=== PATIENT | male | born 1965 | race Two or more races ===

== ENCOUNTER → 2016-10-31 | Outpatient (CLI) | payer BC ==
[2016-10-31 09:42] LABS: Appearance,Urine Clear (Clear); Bilirubin,Urine Negative (Negative); Calcium Oxalate Crystals,Urine Rare /hpf; Glucose,Urine (UA) Negative (Negative); Ketones,Urine Negative (Negative); Leukocyte Esterase,Urine Negative (Negative); Mucus,Urine Rare /hpf; Nitrite,Urine Negative (Negative); Particle Count 1324; Protein,Urine Negative (Negative); RBC,Urine <1 /hpf (0-5); Squamous Epithelial Cell,Urine <1 /hpf (0-4); UA Billing (MACRO vs. MICRO) MICRO; Urobilinogen,Urine <2.0 mg/dL (<2.0); WBC,Urine <1 /hpf (0-5)
[2016-10-31 09:54] LABS: Basophils # (A) 0.1 k/uL (0-0.2); Basophils % (A) 1 %; CH 29.8; CHCM 33.1; Eosinophils # (A) 0.5 k/uL (0-0.7); Eosinophils % (A) 4 %; HCT 50.4 % (39.0-53.0); HDW 2.47; HGB 16.5 gm/dL (13.0-17.5); Luc # (Auto) 0.21; Luc % (Auto) 2; Lymphocytes # (A) 3.5 k/uL (1.0-4.8); Lymphocytes % (A) 31 %; MCH 29.7 pg (25.0-35.0); MCHC 32.8 g/dL (31.0-37.0); MCV 90.6 fL (80.0-100.0); Mean Platelet Volume 8.1; Monocytes # (A) 0.5 k/uL (0-1.0); Monocytes % (A) 5 %; Neutrophils # (A) 6.4 k/uL (1.3-7.7); Neutrophils % (A) 57 %; RBC 5.56 m/uL (4.30-5.90); RDW 13.5 % (11.5-15.5); WBC 11.2 k/uL (3.8-10.6); WBC (Perox) 11.26
[2016-10-31 12:03] LABS: Erythrocyte Sedimentation Rate 3 mm/hr (0-15)
[2016-10-31 12:43] LABS: Hemoglobin A1C 6.1 % (4.2-6.1)
[2016-10-31 13:38] LABS: ALT 32 U/L (21-72); AST 20 U/L (17-59); Alkaline Phosphatase 82 U/L (38-126); Anion Gap 10 mmol/L; Blood Urea Nitrogen 22 mg/dL (9-20); C Reactive Protein <5.0 mg/L (<10.0); Calcium 9.5 mg/dL (8.4-10.2); Carbon Dioxide 24 mmol/L (22-30); Chloride 106 mmol/L (98-107); Cholesterol 190 mg/dL (<200); Creatine Kinase 105 U/L (55-170); Glucose 124 mg/dL (74-99); HDL Cholesterol 31 mg/dL (40-60); Non-African American GFR(MDRD) >60 (>60 ml/min/1.73 sqM); Sodium 140 mmol/L (137-145); Total Bilirubin 0.5 mg/dL (0.2-1.3); Total Protein 6.7 g/dL (6.3-8.2); Triglycerides 230 mg/dL (<150)
[2016-10-31 13:58] LABS: Prostate Specific Antigen 0.43 ng/mL (0.00-4.00)
== END | disposition home or self-care (01) ==
LOC: LABWHC1 08:55
PROVIDERS: ATTEND Internal Medicine
DX: D64.9 Anemia, unspecified (principal); N40.0 Benign prostatic hyperplasia without lower urinary tract symptoms; E11.9 Type 2 diabetes mellitus without complications; E87.8 Other disorders of electrolyte and fluid balance, not elsewhere classified; E78.5 Hyperlipidemia, unspecified; I10 Essential (primary) hypertension; E55.9 Vitamin D deficiency, unspecified
CPT/HCPCS: 36415; 80053; 80061; 81001; 82306; 82550; 83036; 84153; 84439; 84443; 85025; 85652; 86140; 87086

== ENCOUNTER → 2017-02-24 | Outpatient (CLI) | payer BC ==
[2017-02-24 12:53] LABS: Basophils # (A) 0.1 k/uL (0-0.2); Basophils % (A) 1 %; CH 30.1; CHCM 34.2; Eosinophils # (A) 0.2 k/uL (0-0.7); Eosinophils % (A) 2 %; HCT 49.2 % (39.0-53.0); HDW 2.48; HGB 16.7 gm/dL (13.0-17.5); Luc # (Auto) 0.26; Luc % (Auto) 2; Lymphocytes # (A) 2.9 k/uL (1.0-4.8); Lymphocytes % (A) 19 %; MCV 88.3 fL (80.0-100.0); Mean Platelet Volume 7.5; Monocytes # (A) 0.9 k/uL (0-1.0); Monocytes % (A) 6 %; Neutrophils % (A) 71 %; RBC 5.57 m/uL (4.30-5.90); RDW 13.4 % (11.5-15.5); WBC 15.4 k/uL (3.8-10.6); WBC (Perox) 14.63
[2017-02-24 13:24] LABS: Anion Gap 9 mmol/L; Blood Urea Nitrogen 24 mg/dL (9-20); Calcium 9.3 mg/dL (8.4-10.2); Carbon Dioxide 25 mmol/L (22-30); Chloride 107 mmol/L (98-107); Glucose 113 mg/dL (74-99); Non-African American GFR(MDRD) >60 (>60 ml/min/1.73 sqM); Potassium 4.4 mmol/L (3.5-5.1); Sodium 141 mmol/L (137-145)
== END | disposition home or self-care (01) ==
LOC: LABWHC1 12:33
PROVIDERS: ATTEND Internal Medicine
DX: N20.0 Calculus of kidney (principal)
CPT/HCPCS: 36415; 80048; 85025

== ENCOUNTER → 2017-02-24 | Outpatient (CLI) | payer BC ==
--- NOTE | 2017-02-24 12:35 | US ---
EXAMINATION TYPE: US kidneys/renal and bladder DATE OF EXAM: 02/24/2017 12:21 PM COMPARISON: NONE CLINICAL HISTORY: N20.0 Nephrolithiasis. Pt states left flank pain, microscopic hematuria and history of renal stones EXAM MEASUREMENTS: Right Kidney: 12.0 x 5.1 x 5.8 cm Left Kidney: 14.1 x 7.1 x 6.3 cm Right Kidney: wnl Left Kidney: Moderate hydro, cyst lower pole= 2.7 x 2.3 x 2.4 cm Bladder: wnl, not fully distended Bilateral Jets seen: No Results called to Geena at 's office at time of exam IMPRESSION: 1. Left hydronephrosis. 2. Left renal cyst
== END ==
LOC: RADUSWWP 11:56
PROVIDERS: ATTEND Internal Medicine
DX: N28.1 Cyst of kidney, acquired (principal); N13.30 Unspecified hydronephrosis
CPT/HCPCS: 76770

== ENCOUNTER → 2017-02-28 | Outpatient (CLI) | payer BC ==
--- NOTE | 2017-02-28 08:34 | XR ---
EXAMINATION TYPE: XR abdomen 1V DATE OF EXAM: 02/28/2017 8:06 AM COMPARISON: NONE HISTORY: Pain TECHNIQUE: One view abdominal series FINDINGS: The osseous structures are intact. The bowel gas pattern is nonspecific. No definite suspicious calc ifications. Mild arthropathy of the hips. IMPRESSION: 1. Nonspecific abdomen.
== END ==
LOC: RADXRMAIN 07:41
PROVIDERS: ATTEND Urology
DX: N20.1 Calculus of ureter (principal)
CPT/HCPCS: 74000

== ENCOUNTER → 2017-03-20 | Outpatient (CLI) | payer BC ==
--- NOTE | 2017-03-20 08:14 | XR ---
Abdomen HISTORY: Ureteral calculus Frontal view of the abdomen submitted. Exam correlated to prior exam dated 02/28/2017 The lung bases are not included on the exam. There is no bowel obstruction or pneumoperitoneum eviden t. Bone mineralization is maintained. Ureteral calcification is not identified with certainty. IMPRESSION: Calculus is not identified with certainty.
== END | disposition home or self-care (01) ==
LOC: RADXRMAIN 07:02
PROVIDERS: ATTEND Urology
DX: N20.1 Calculus of ureter (principal)
CPT/HCPCS: 74000

== ENCOUNTER → 2017-10-04 | Outpatient (CLI) | payer BC ==
--- NOTE | 2017-10-04 13:05 | XR ---
EXAMINATION TYPE: XR chest 2V DATE OF EXAM: 10/04/2017 COMPARISON: NONE HISTORY: Cough TECHNIQUE: Frontal and lateral views of the chest are obtained. FINDINGS: Patient is rotated toward the right. There may be a spinal curvature. There is no focal ai r space opacity, pleural effusion, or pneumothorax seen. The cardiac silhouette size is within ayan l limits. Questionable scattered punctate densities are present primarily in the right lung. There a re prominent lung volumes. The osseous structures are intact. IMPRESSION: Correlate for possible COPD. Questionable granulomatous disease.
--- NOTE | 2017-10-04 14:05 | XR ---
Right knee HISTORY: Chronic right knee pain 4 views of the right knee, no comparisons Bone mineralization, joint spaces and alignment are maintained. There is no fracture or dislocation. Soft tissues are normal. No sizable joint effusion. There is overlying artifact. IMPRESSION: No abnormality evident to account for patient's.
== END | disposition home or self-care (01) ==
LOC: RADXRMAIN 12:00
PROVIDERS: ATTEND Internal Medicine
DX: M25.561 Pain in right knee (principal); R05 Cough
CPT/HCPCS: 71020

== ENCOUNTER → 2018-02-05 | Outpatient (CLI) | payer OTHER ==
--- NOTE | 2018-02-05 15:47 | US ---
EXAMINATION TYPE: US axilla RT DATE OF EXAM: 02/05/2018 COMPARISON: NONE CLINICAL HISTORY: ,D17.9 Benign lipomatous neoplasm. palpable in right axilla for a few years now, no t any bigger, no pain 2.6 x 2.4 x 1.1cm hyperechoic, well circumscribed, non vascular, probable lipoma seen. IMPRESSION: Circumscribed 2.6 cm hyperechoic oval lesion is most compatible with a lipoma. If increa sing in size over time reevaluation could be performed to exclude other lipomatous lesions.
== END | disposition home or self-care (01) ==
LOC: RADUSWWP 14:48
PROVIDERS: ATTEND Internal Medicine
DX: D17.9 Benign lipomatous neoplasm, unspecified (principal)

== ENCOUNTER → 2018-06-29 | Outpatient (CLI) | payer OTHER ==
--- NOTE | 2018-06-29 12:24 | CT ---
EXAMINATION TYPE: CT chest w con DATE OF EXAM: 06/29/2018 COMPARISON: Same day chest x-ray HISTORY: hemoptysis, abnormal CXR CT DLP: 595 mGycm. Automated Exposure Control for Dose Reduction was Utilized. TECHNIQUE: CT scan of the thorax is performed following with IV Contrast, patient injected with 100 mL of Isovue 300. FINDINGS: LUNGS: There is background mild to moderate underlying emphysematous change is prominent in the lung apices. Correlating with chest x-ray there is heterogeneous mass or masslike consolidation abutting t he posterior pleura measuring 4.0 cm AP diameter by 7.1 cm transversely axial image 44. Lesion measur es 5.8 cm craniocaudal dimension sagittal image 87. There are some foci of air along superior medial aspect. No thickened wall is clearly identified. No pleural effusion or pneumothorax is seen. Right l ara is clear. MEDIASTINUM: There are enlarged heterogeneous suspicious thoracic lymph nodes. There is enlarged ante rior superior mediastinal lymph node measuring 2.1 x 1.8 cm axial image 9 in between left common tim tid artery and subclavian artery. There are enlarged prevascular lymph nodes for reference 1.6 x 1.5 cm lymph node axial image 21. There are enlarged bilateral hilar lymph nodes and subcarinal lymph nod es as well as precarinal lymph nodes. For reference subcarinal lymph node measures 3.7 x 2.8 cm on ax ial image 32. There is enlarged paraesophageal lymph node measuring 2.2 x 1.8 cm axial image 49. No cardiomegaly is present. Main pulmonary artery measures 2.8 cm at bifurcation axial image 28. Noemí cent ascending aorta measures 3.1 cm in diameter. There is mild coronary artery calcification which i s noted marker for coronary artery disease. There is small pericardial effusion noted. OTHER: No adrenal masses are seen. Spine is straightened with mild multilevel anterior spurring. IMPRESSION: Favor primary lung carcinoma with thoracic metastatic disease as detailed above. CT-guide d biopsy or bronchoscopy can be performed for tissue analysis. Infection with reactive adenopathy can not be excluded but felt much less likely. I see no evidence of Mass or adenopathy on chest x-ray October 04, 2017 making aggressive or rapid growing process most l ikely.
== END | disposition home or self-care (01) ==
LOC: RADCTMAIN 11:24
PROVIDERS: ATTEND Internal Medicine
DX: C34.90 Malignant neoplasm of unspecified part of unspecified bronchus or lung (principal); C79.89 Secondary malignant neoplasm of other specified sites; R04.2 Hemoptysis
CPT/HCPCS: 71260; Q9967

== ENCOUNTER → 2018-06-29 | Outpatient (CLI) | payer OTHER ==
[2018-06-29 09:21] LABS: Basophils # (A) 0.1 k/uL (0-0.2); Basophils % (A) 1 %; Eosinophils # (A) 0.6 k/uL (0-0.7); Eosinophils % (A) 6 %; HCT 45.6 % (39.0-53.0); HGB 15.1 gm/dL (13.0-17.5); Lymphocytes # (A) 2.4 k/uL (1.0-4.8); Lymphocytes % (A) 21 %; MCH 27.8 pg (25.0-35.0); MCHC 33.1 g/dL (31.0-37.0); Mean Platelet Volume 7.2; Monocytes # (A) 0.6 k/uL (0-1.0); Monocytes % (A) 5 %; Neutrophils # (A) 7.6 k/uL (1.3-7.7); Neutrophils % (A) 66 %; Platelet Count 361 k/uL (150-450); RBC 5.43 m/uL (4.30-5.90); RDW 13.8 % (11.5-15.5); WBC 11.4 k/uL (3.8-10.6)
--- NOTE | 2018-06-29 09:42 | XR ---
EXAMINATION TYPE: XR chest 2V DATE OF EXAM: 06/29/2018 COMPARISON: Chest x-ray October 04, 2017 HISTORY: Chronic cough with hemoptysis. TECHNIQUE: Frontal and lateral views of the chest are obtained. FINDINGS: There are scattered calcified nodules are granulomas throughout the right lung. There is ch ronic parenchymal change with new 7 to 8 cm posterior masslike opacity in the left lower lobe. Right lung is clear. No pleural effusion or pneumothorax is seen bilaterally. The cardiac silhouette size is within normal limits. The osseous structures are intact. IMPRESSION: New 7 to 8 cm round well-circumscribed mass or masslike consolidation posterior aspect l eft lower lobe. Differential includes round pneumonia and neoplasm, other etiologies are not excluded . Further investigation with contrast-enhanced chest CT should be considered.
== END | disposition home or self-care (01) ==
LOC: LABWHC1 08:51
PROVIDERS: ATTEND Internal Medicine
DX: R04.2 Hemoptysis (principal); J12.9 Viral pneumonia, unspecified; J06.9 Acute upper respiratory infection, unspecified
CPT/HCPCS: 36415; 71046; 85025

== ENCOUNTER → 2018-07-07 | Outpatient (CLI) | payer OTHER ==
--- NOTE | 2018-07-08 16:18 | PE ---
EXAMINATION TYPE: PET CT fusion skull to thigh DATE OF EXAM: 07/07/2018 COMPARISON: CT chest 06/29/2018 Prior PET/CT: None HISTORY: Solitary pulmonary nodule TECHNIQUE: Following the intravenous administration of 14.5 mCi of F-18 FDG, whole body images are p erformed from the skull base to the midthigh. Images are reviewed on the computer in the coronal, ax ial, and sagittal planes. Reconstructed rotating images are created on independent workstation and r eviewed on the computer. A localization and attenuation correction CT is performed in conjunction w ith the PET scan. DLP: 499.70 mGycm SCAN: Initial Blood glucose: 128 mg/dL Average Mediastinum SUV: 0.83 Average Liver SUV: 1.28 FINDINGS: NECK: There is a small amount of increased radiotracer accumulation along the anterior right hyoid w ith an SUV value of 4.19. Metastatic lesion is not excluded. If there is misregistration, potentially this could be related to phonation. However, the contralateral side is normal. This area should be v iewed with suspicion. There is a small focus of radiotracer accumulation lateral to the thyroid in th e left supraclavicular region with an SUV value of 3.0. A small metastatic lesion should be considere d. PET image 63 THORAX: There is increased uptake within the mediastinum through multiple enlarged lymph nodes. This includes the superior mediastinum. PET image 73, SUV 5.23. Superior mediastinum PET image 80, SUV 7.1 5. Paratracheal lymph node not enlarged by CT criteria is an SUV value of 2.86 suspicious for metasta tic lesion. PET image 81. There is marked increased uptake within aortopulmonic window lymph nodes anita th medially and laterally. This has an SUV value of 9.11 laterally and 7.84 medially. Small lymph nod e in the pretracheal space same level has elevated SUV value of 2.8 which is suspicious for metastati c disease. PET image 89. Additional more inferior aortopulmonic window lymph nodes are present with u ptake measuring 6.67, 7.39 and a pretracheal lymph node measuring 8.51. PET image 92. The subcarinal lymph node has uptake measuring 7.27. PET image 103. The right infrahilar lymph node at this level al so has elevated uptake measuring 4.5. There is peripheral marked uptake within the posterior left lung mass with an SUV value of 10.57. PET image 116. There is a subcutaneous area of increased uptake with an SUV value of 2.66. Subcutaneous metastatic l esion should be considered. PET image 79. ABDOMEN: No abnormal uptake. The adrenal glands and the liver appear normal radiotracer distribution. PELVIS: No abnormal uptake. OSSEOUS STRUCTURES: No abnormal uptake. LOCALIZATION CT: No discrete abnormality at the anterior right hyoid is evident. There may be slight increased sclerosis of uncertain significance on the localization CT. Suspicious uptake within the le ft axillary lymph nodes are not evident. The ascending thoracic aorta at the main pulmonary artery is 4.1 cm. The main pulmonary artery at the bifurcation is 3.2 cm. There is a small pericardial effusio n. Lung mass the localization CT measures 7.4 x 5.0 cm. Small hiatal hernia is noted. COMPARISON: No significant change from the chest CT is evident. IMPRESSION: 1. Elevated uptake of radiotracer within the posterior left lung mass suspicious for primary neoplasm . 2. There are are extensive lymph nodes throughout the mediastinum including right infrahilar, pretrac heal, subcarinal, superior mediastinal lymph nodes with uptake suspicious for metastatic disease. 3. Additional radiotracer uptake may be within a right supraclavicular lymph node. 4. Subcutaneous metastatic lesion within the left chest wall may be present. 5. Small focus of radiotracer may be in the region of the right anterior hyoid bone. Sclerotic metast asis is not entirely excluded at this level. Consider this area with some suspicion.
== END | disposition home or self-care (01) ==
LOC: RADPETMAIN 13:24
PROVIDERS: ATTEND Internal Medicine
DX: R91.8 Other nonspecific abnormal finding of lung field (principal)
CPT/HCPCS: 78815; A9552

== ENCOUNTER 2018-07-09 08:06 | Day surgery (SDC) | payer OTHER ==
[2018-07-09 09:09] LABS: Mean Platelet Volume 6.7; Platelet Count 389 k/uL (150-450)
[2018-07-09 09:25] LABS: INR 1.1 (<1.2); Prothrombin Time 10.5 sec (9.0-12.0)
[2018-07-09] MEDS ORDERED: HYDROmorphone 1 MG/ML 1 ML SYRINGE IVP PRN (11:05)
--- NOTE | 2018-07-09 11:40 | US ---
ULTRASOUND GUIDED FNA LEFT SUBCUTANEOUS NODULE BIOPSY: CLINICAL HISTORY: Abnormal PET scan with uptake within the left subcutaneous tissues near the axilla FINDINGS: The procedure was explained to the patient. The risks, complications, benefits and alternatives were discussed and any questions were answered. Informed consent was obtained. Patient was placed supin e on the ultrasound table and prepped and draped in the usual sterile fashion. Utilizing a 25 gauge needle, five passes were made into the suspected nodule. Patient was stable throughout the procedure. Pathology is pending. All elements of maximal barrier technique were utilized. IMPRESSION: 1. Successful ultrasound guided FNA soft tissue nodule biopsy.
--- NOTE | 2018-07-09 11:41 | CT ---
EXAMINATION TYPE: CT guided FNA DATE OF EXAM: 07/09/2018 COMPARISON: PET/CT dated 07/07/2018 HISTORY: Left lung mass The procedure is discussed with the patient, the risks, complications, benefits and alternatives, wer e discussed and any questions were answered. Informed consent was obtained. The patient is placed p alissa on the CT table, prepped and draped in the usual sterile fashion. Utilizing a 22-gauge Chiba needle access into the left lower lobe mass was achieved with passes perfo rmed. Pathology confirmed adequate sample. All elements of maximal barrier technique were utilized. The patient remained stable throughout the procedure with no immediate postprocedural complication. IMPRESSION: 1. Successful CT guided fine needle aspiration of a left lower lobe lung mass
[2018-07-09 11:43] VITALS: RESP 16; TEMP 98.2
--- NOTE | 2018-07-09 12:31 | XR ---
EXAMINATION TYPE: XR chest 1V portable DATE OF EXAM: 07/09/2018 COMPARISON: 07/09/2018 HISTORY: Post lung biopsy TECHNIQUE: Single frontal view of the chest is obtained. FINDINGS: There is no focal air space opacity, pleural effusion, or pneumothorax seen. The cardiac silhouette size is within normal limits. The osseous structures are intact. Large left lung mass no paulette. IMPRESSION: Large left lung mass with no evidence of pneumothorax post biopsy.
[2018-07-09 14:19] VITALS: BP 138/70; PULSE 58
--- NOTE | 2018-07-09 14:19 | XR ---
EXAMINATION TYPE: XR chest 1V portable DATE OF EXAM: 07/09/2018 COMPARISON: 07/09/2018 HISTORY: post left lung bx TECHNIQUE: Single frontal view of the chest is obtained. FINDINGS: There is no focal air space opacity, pleural effusion, or pneumothorax seen. The cardiac silhouette size is within normal limits. The osseous structures are intact. Large left lung mass n oted. IMPRESSION: Large left lung mass with no evidence of pneumothorax post biopsy.
== END 2018-07-09 14:15 | disposition home or self-care (01) ==
LOC: RADPROMAIN 08:06
PROVIDERS: ATTEND Internal Medicine
DX: C34.92 Malignant neoplasm of unspecified part of left bronchus or lung (principal); F17.200 Nicotine dependence, unspecified, uncomplicated; R59.0 Localized enlarged lymph nodes; J44.9 Chronic obstructive pulmonary disease, unspecified; I25.10 Atherosclerotic heart disease of native coronary artery without angina pectoris; E78.5 Hyperlipidemia, unspecified; N40.0 Benign prostatic hyperplasia without lower urinary tract symptoms; E03.9 Hypothyroidism, unspecified; Z80.1 Family history of malignant neoplasm of trachea, bronchus and lung
CPT/HCPCS: 88305; 88173; 85049; 85610; 88342; 88341; 71045; 76942; 10022 ×2; 77012; J1170

== ENCOUNTER → 2018-07-11 | Outpatient (CLI) | payer OTHER ==
--- NOTE | 2018-07-11 13:52 | MR ---
EXAMINATION TYPE: MR brain wo/w con DATE OF EXAM: 07/11/2018 COMPARISON: None HISTORY: Headache / Lung ca CONTRAST: Performed utilizing 9.5 mL intravenous Gadavist gadolinium contrast. TECHNIQUE: Multiplanar, multiecho imaging on a 3.0 Elaine magnet is performed through the brain. Stud y is performed within 24 hours of arrival to the hospital. Motion artifact is present causing some li mitation. The craniovertebral junction is normal. The pituitary is normal. Diffusion-weighted imaging is performed. No abnormal hyperintensity is present to suggest an acute i ntracranial infarct or acute ischemic change. There are scattered punctate areas of hyperintensity on T2 and Inversion Recovery weighted sequences which are non-specific but can be related to microvascular ischemic changes. With the patient's histo ry of cancer, metastatic disease, wall considered less likely, is not excluded. A larger lesion for r eference purposes measures 0.6 cm in the right subcortical white matter at the level of the nicole ra diata. Series 501 image 19. Similar finding is within the inferior left centrum semiovale, series 501 image 20. There is a area of vasogenic edema within the subcortical white matter of the right frontal lobe radha uring 2.0 x 0.8 cm. Findings are suggestive for underlying neoplasm. Series 501 image 24. Postcontras t images demonstrate a ring-enhancing lesion compatible with a metastatic lesion measuring 0.7 cm x 0 .8 x 0.8 cm. No additional abnormal enhancement is evident. Ventricles and sulci are appropriate for the patient age. Patent cavum septum lucidum and cavum verga e are present, normal variants. IMPRESSIONS: 1. Ring-enhancing lesion measuring 0.7 x 0.8 x 0.8 cm right centrum semiovale subcortical white matte r of the right frontal lobe with surrounding vasogenic edema. 2. Several nonspecific subcortical and deep white matter changes, more likely on the basis of microva scular ischemic change. These are nonenhancing and less likely neoplasm which is not entirely exclude d on the basis of this exam.
== END | disposition home or self-care (01) ==
LOC: RADMRIMAIN 12:44
PROVIDERS: ATTEND Internal Medicine Hematology & Oncology
DX: G93.89 Other specified disorders of brain (principal); R60.0 Localized edema; R90.89 Other abnormal findings on diagnostic imaging of central nervous system; C34.90 Malignant neoplasm of unspecified part of unspecified bronchus or lung
CPT/HCPCS: 70553; A9581

== ENCOUNTER → 2018-07-16 | Outpatient (CLI) | payer OTHER ==
--- NOTE | 2018-07-17 06:39 | US ---
EXAMINATION TYPE: US thyroid st tissue head/neck DATE OF EXAM: 07/16/2018 COMPARISON: CT chest June 29, 2018. CLINICAL HISTORY: E04.0 Diffuse goiter. GLAND SIZE: Right Lobe: 4.4 x 1.7 x 1.4 cm Overall Parenchyma: homogenous Left Lobe: 2.5 x 1.0 x 1.3 cm Overall Parenchyma: homogeneous Isthmus Thickness: 0.5 cm NODULES RIGHT: # of nodules measured on right: 0 LEFT: # of nodules measured on left: 0 ISTHMUS: # of nodules measured in the isthmus: 1 1. 1.6 X 1.0 x 1.5 cm hypoechoic solid nodule at the mid pole with irregular margins. This nodule is wider than tall and shows intranodular vascularity. No prior Bilateral neck scanned, no evidence of lymphadenopathy. Lymph nodes noted largest measuring 1.0cm There is asymmetrically smaller left side thyroid lobe. Thyroid gland is overall homogeneous. In left aspect of the isthmus there is heterogeneous slightly hypoechoic somewhat irregular marginated 1.6 c m solid nodule IMPRESSION: TR 4-- moderately suspicious left thyroid isthmus solid lesion. Advise ultrasound-guided fine-needle aspiration since greater than 1.5 cm.
== END ==
LOC: RADUSMAIN 07-13 17:50
PROVIDERS: ATTEND Internal Medicine
DX: E04.0 Nontoxic diffuse goiter (principal)
CPT/HCPCS: 76536

== ENCOUNTER → 2018-08-23 | Outpatient (CLI) | payer OTHER ==
--- NOTE | 2018-08-23 12:49 | CT ---
EXAMINATION TYPE: CT chest w con DATE OF EXAM: 08/23/2018 COMPARISON: 06/29/2018 and PET/CT dated 07/07/2018 HISTORY: Lung cancer. Left lower extremity swelling. CT DLP: 568.9 mGycm. Automated Exposure Control for Dose Reduction was Utilized. TECHNIQUE: CT scan of the thorax is performed following with IV Contrast, patient injected with 100 mL of Isovue 300. FINDINGS: LUNGS: There is decrease in size of the left lower lobe cavitary centrally to chronic mass with air-f luid level. This currently measures 6.4 x 4.0 cm and previously measured 7.1 x 4.0 cm. No new pulmona ry nodules or masses are seen. Mild centrilobular background emphysematous change is present. There is no pleural effusion or pneumothorax seen. The tracheobronchial tree is patent. MEDIASTINUM: Degree of adenopathy has also decreased in the interim with the largest necrotic and het erogenous subcarinal lymph node measuring 3.4 x 2.8 cm on the current exam and previously measuring 3 .9 x 3.1 cm on the prior of 06/29/2018. Other enlarged right hilar, left hilar, pretracheal, left para tracheal, and prevascular lymph nodes are seen of the second largest in the prevascular space measuri ng 1.5 cm in short axis as well as within the superior mediastinum on image 11 measuring 2.0 cm in sh ort axis. Supraclavicular lymph node is prominent measuring 8 mm in short axis on image 4 on the left . Small nonenlarged right supraclavicular lymph nodes are also seen. Few morphologically rounded righ t axillary lymph nodes are noted as seen on the prior. Conglomeration of lymph nodes are seen of th e mary kay. Mild coronary artery calcifications are seen. Small pericardial effusion is present. No cardiomegaly. OTHER: Low-attenuation of the hepatic parenchyma relates to hepatic steatosis. IMPRESSION: 1. Decreasing size of the known left lower lobe pulmonary neoplasm, mediastinal adenopathy and suprac lavicular adenopathy. 2. No new pulmonary nodule or mass. 3. Hepatic steatosis.
--- NOTE | 2018-08-23 13:16 | US ---
EXAMINATION TYPE: US venous doppler duplex LE DATE OF EXAM: 08/23/2018 12:59 PM COMPARISON: NONE CLINICAL HISTORY: M79.662 lower leg pain. Redness to left thigh and calf at course of Greater Sapheno us Vein and left calf pain x 1 week; CA lung; last chemotherapy treatment 2 weeks ago SIDE PERFORMED: Bilateral TECHNIQUE: The lower extremity deep venous system is examined utilizing real time linear array sonog oneal with graded compression, doppler sonography and color-flow sonography. Grayscale, color doppler , spectral doppler imaging performed of the deep veins of the lower extremities. VESSELS IMAGED: Common Femoral Vein Deep Femoral Vein Greater Saphenous Vein * Femoral Vein Popliteal Vein Small Saphenous Vein * Proximal Calf Veins (* superficial vessels) Right Leg: Negative for DVT Left Leg: Is positive for non occluding DVT in left CFV along parnell at Greater Saphenous Vein conflu ence, and positive for DVT in left lower Popliteal Vein and upper calf veins. Left Greater Saphenous Vein is positive for SVT at Groin to mid thigh level. IMPRESSION: Positive completely occluding deep venous thrombosis within the left common femoral vein and within the popliteal vein and upper calf veins. Superior venous thrombosis is also seen within th e left greater saphenous vein at the groin to mid thigh. Tech findings called to Uche at Dr Abisai nick's Office at exam's end. Patient transported by wheelchair back to his Office for followup care at [facility]. GALINA
== END | disposition home or self-care (01) ==
LOC: RADUSWWP 12:07
PROVIDERS: ATTEND Internal Medicine Hematology & Oncology
DX: C34.32 Malignant neoplasm of lower lobe, left bronchus or lung (principal); R59.0 Localized enlarged lymph nodes; I82.412 Acute embolism and thrombosis of left femoral vein; I82.432 Acute embolism and thrombosis of left popliteal vein; I82.4Z2 Acute embolism and thrombosis of unspecified deep veins of left distal lower extremity; I82.812 Embolism and thrombosis of superficial veins of left lower extremity
CPT/HCPCS: 93970; 71260; Q9967

== ENCOUNTER → 2018-11-12 | Outpatient (CLI) | payer OTHER ==
[2018-11-12 06:58] LABS: Blood Urea Nitrogen 27 mg/dL (9-20)
--- NOTE | 2018-11-12 08:13 | CT ---
EXAMINATION TYPE: CT chest w con DATE OF EXAM: 11/12/2018 COMPARISON: 08/23/2018 HISTORY: Follow up of lung cancer CT DLP: 671 mGycm. Automated Exposure Control for Dose Reduction was Utilized. TECHNIQUE: CT scan of the thorax is performed following with IV Contrast, patient injected with 100 mL of Isovue 300. FINDINGS: LUNGS: There is continued decrease in size of left lower lobe cavitary mass previously measuring 4.0 x 6.0 c m on the exam of 08/23/2018 and currently measuring 3.1 x 3.6 cm. There is minimal surrounding atelec tasis seen medially. No adjacent fibrotic change. Underlying moderate centrilobular emphysema is pres ent. No new pulmonary nodules or masses are identified. MEDIASTINUM: The previously seen mediastinal adenopathy continues to decrease. The prevascular previo usly seen 1.5 cm short axis lymph node now measures 8 mm on series 3 image 14. The subcarinal lymph n ode that measured 3.4 x 2.8 cm on the prior exam now measures 1.1 cm in short axis. Right hilar adeno elizabeth also improved with the largest lymph node measuring 1.1 cm in short axis. No sizable pericardia l effusion is seen. Few coronary artery calcifications are seen. The previously seen prominent supra clavicular lymph nodes are not included in the [id number] on this examination. OTHER: Hepatic parenchyma is diffusely hypoattenuated in comparison to that of the spleen, most commonly see n in hepatic steatosis. This finding limits evaluation for hepatic masses. No gross evidence of hepat ic mass is seen. No intrahepatic biliary ductal dilatation. IMPRESSION: 1. Continued response to treatment with decreased size of the solitary left lower lobe cavitary mass and decrease in mediastinal adenopathy, only a few slightly enlarged lymph nodes remaining. No new ev idence of metastasis within the chest. 2. Hepatic steatosis.
== END | disposition home or self-care (01) ==
LOC: RADCTMAIN 06:26
PROVIDERS: ATTEND Internal Medicine Hematology & Oncology
DX: C34.32 Malignant neoplasm of lower lobe, left bronchus or lung (principal); R59.0 Localized enlarged lymph nodes
CPT/HCPCS: 82565; 84520; 71260; 36415; Q9967

== ENCOUNTER → 2018-12-06 | Outpatient (CLI) | payer OTHER ==
--- NOTE | 2018-12-06 21:46 | MR ---
EXAMINATION TYPE: MR brain wo/w con DATE OF EXAM: 12/06/2018 COMPARISON: MRI brain September 06, 2018. HISTORY: Secondary malignant neoplasm of brain, F/u TECHNIQUE: Multiplanar, multisequence images of the brain and brainstem is performed without and with IV contras t, utilizing 10 mL intravenous Gadavist . FINDINGS: Diffusion weighted images demonstrate no evidence of a recent infarct or other diffusion ab normality. There is no worrisome extra-axial fluid collection. Ventricular and sulcal prominence con sistent with mild diffuse age related cerebral atrophy is redemonstrated. Septum pellucidum vergae is redemonstrated. Scattered foci of T2 hyperintensity are redemonstrated throughout the white matter b ilaterally. Approximately 20-30 small scattered redemonstrated. Midline structures demonstrate normal morphology. The craniocervical junction appears within normal limits. Post contrast images demonstrate no recurrent enhancing lesions. Previously visualized from enhancing 8 mm focus high right frontal lobe is not clearly evident on current study near axial image 69. No new enhancing lesions are seen. The dural venous sinuses appear patent. The visualized sinuse s are clear and the globes are intact. IMPRESSION: No new or recurrent enhancing foci to suggest active metastatic malignant recurrence. Sta ble mild diffuse cerebral atrophy and mild to moderate chronic small vessel ischemic change.
== END | disposition home or self-care (01) ==
LOC: RADMRIMAIN 19:38
PROVIDERS: ATTEND Radiology Radiation Oncology
DX: G31.1 Senile degeneration of brain, not elsewhere classified (principal); I67.82 Cerebral ischemia; C79.31 Secondary malignant neoplasm of brain; C77.3 Secondary and unspecified malignant neoplasm of axilla and upper limb lymph nodes; C34.32 Malignant neoplasm of lower lobe, left bronchus or lung; Z92.21 Personal history of antineoplastic chemotherapy
CPT/HCPCS: 70553; A9585

== ENCOUNTER → 2019-02-12 | Outpatient (CLI) | payer OTHER ==
--- NOTE | 2019-02-13 09:14 | XR ---
EXAMINATION TYPE: XR knee complete RT DATE OF EXAM: 02/12/2019 CLINICAL HISTORY: pain TECHNIQUE: Three views of the right knee are obtained. COMPARISON: None. FINDINGS: There is no acute fracture/dislocation. The tri-compartment joint spaces appear within no rmal limits. The overlying soft tissue appears unremarkable. IMPRESSION: There is no acute fracture or dislocation.ICD 10 NO FRACTURE, INITIAL EVALUATION
== END | disposition home or self-care (01) ==
LOC: RADXRMAIN 17:21
PROVIDERS: ATTEND Internal Medicine
DX: M17.11 Unilateral primary osteoarthritis, right knee (principal); M25.461 Effusion, right knee

== ENCOUNTER → 2019-02-21 | Outpatient (CLI) | payer OTHER ==
[2019-02-21 17:12] LABS: Blood Urea Nitrogen 16 mg/dL (9-20)
--- NOTE | 2019-02-21 18:13 | CT ---
EXAMINATION TYPE: CT angio chest DATE OF EXAM: 02/21/2019 5:49 PM COMPARISON: None HISTORY: Dyspnea and left side chest pain. CT DLP: 384.3 mGycm Automated exposure control for dose reduction was used. CONTRAST: CTA scan of the thorax is performed with IV Contrast, patient injected with 69ml mL of Isovue 370, pu lmonary embolism protocol. . There are 3-D post processed images. FINDINGS: There is mild pulmonary emphysema. There is a 3 cm noncalcified masslike density in the posterior lef t lower lobe. The other lung cervantes are clear. There is no pleural effusion. Heart size is normal. There is a 1 cm subcarinal lymph node. There is a 17 x 10 mm right bronchial lymph node. Heart size i s normal. There is no pericardial effusion. Upper abdominal soft tissues are unremarkable. I see no filling defect in the pulmonary arteries. Bony thorax is intact. IMPRESSION: NO EVIDENCE OF PULMONARY EMBOLISM. LEFT LOWER LOBE MASS IS SLIGHTLY SMALLER THAN THE LAST CT SCAN OF 11/12/2018. THERE APPEARS TO BE SLIGHT IMPROVEMENT IN THE SUBCARINAL AND RIGHT BRONCHIAL ADENOPATHY COM PARED TO LAST EXAM.
== END | disposition home or self-care (01) ==
LOC: RADCTMAIN 16:30
PROVIDERS: ATTEND Internal Medicine Hematology & Oncology
DX: Z03.89 Encounter for observation for other suspected diseases and conditions ruled out (principal); R91.8 Other nonspecific abnormal finding of lung field; R59.0 Localized enlarged lymph nodes; C34.32 Malignant neoplasm of lower lobe, left bronchus or lung
CPT/HCPCS: 82565; 84520; 71275; 36415; Q9967

== ENCOUNTER → 2019-03-05 | Outpatient (CLI) | payer OTHER ==
--- NOTE | 2019-03-05 15:14 | MR ---
EXAMINATION TYPE: MR brain wo/w con DATE OF EXAM: 03/05/2019 COMPARISON: MRI brain December 06, 2018 and older studies. HISTORY: secondary neoplasm brain, metastatic lung cancer progress study. TECHNIQUE: Multiplanar, multisequence images of the brain and brainstem is performed without and with IV contras t, utilizing 11 mL intravenous Gadavist . FINDINGS: Diffusion weighted images demonstrate no evidence of a recent infarct or other diffusion ab normality. There is no worrisome extra-axial fluid collection. Ventricular and sulcal prominence is redemonstrated. Scattered foci T2 hyperintensity throughout the white matter bilaterally are again se en. Septum pellucidum vergae is redemonstrated. The brain volume is age appropriate. Midline structures demonstrate normal morphology. The craniocervical junction appears within normal limits. Post contrast images demonstrate no new enhancing lesions. Prior visualized rim-enhancing me tastatic focus high right frontal lobe shows no recurrence on current study. The dural venous sinuses appear patent. Mild to moderate mucosal thickening involving right maxillary sinus is now present, i mproving but persistent tiny air-fluid level noted. Resolution of air-fluid level left maxillary sinu s noted. Persistent mild to moderate mucosal thickening involving ethmoid sinuses bilaterally, left g reater than right. IMPRESSION: Overall stable findings from most recent CT, no new or recurrent enhancing foci to sugg est active metastatic malignant recurrence. Stable mild diffuse cerebral atrophy and mild to borderli ne moderate chronic small vessel ischemic change.
== END | disposition home or self-care (01) ==
LOC: RADMRIMAIN 13:59
PROVIDERS: ATTEND Radiology Radiation Oncology
DX: C79.31 Secondary malignant neoplasm of brain (principal); C77.3 Secondary and unspecified malignant neoplasm of axilla and upper limb lymph nodes; C34.32 Malignant neoplasm of lower lobe, left bronchus or lung; G31.9 Degenerative disease of nervous system, unspecified; I67.82 Cerebral ischemia; Z92.21 Personal history of antineoplastic chemotherapy
CPT/HCPCS: 70553; A9585

== ENCOUNTER → 2019-06-05 | Outpatient (CLI) | payer OTHER ==
--- NOTE | 2019-06-05 21:54 | MR ---
EXAMINATION TYPE: MR brain wo/w con DATE OF EXAM: 06/05/2019 COMPARISON: 03/05/2019, 09/06/2018 HISTORY: Secondary neoplasm brain CONTRAST: Performed utilizing 11 mL intravenous Gadavist gadolinium contrast. TECHNIQUE: Multiplanar, multiecho imaging on a 3.0 Elaine magnet is performed through the brain. Stud y is performed within 24 hours of arrival to the hospital. The craniovertebral junction is normal. The pituitary is normal. Diffusion-weighted imaging is performed. No abnormal hyperintensity is present to suggest an acute i ntracranial infarct or acute ischemic change. There are scattered punctate subcortical white matter changes which are nonspecific. This could be re lated to microvascular ischemic change. Differential diagnosis could include multiple sclerosis or Ly me disease, vasculitis. These are nonenhancing suggesting neoplasm to be less likely. Optic chiasm is normal. Normal vascular flow voids are present. Ventricles and sulci are appropriate for the patient age. There is a patent cavum septum lucid and ca vum vergae, normal variants. COMPARISON: No significant interval change from the recent comparison is evident. Comparison is also made of 09/06/2018. The extremely subtle area of enhancement is not evident currently Mucosal thickening is present through the maxillary sinuses and ethmoid air cells. Frontal sinuses ar e clear. Small amount mucosal thickening is within sphenoid sinuses. IMPRESSIONS: 1. No suspicious enhancement to suggest recurrent or new metastatic lesions. 2. Multiple bilateral scattered deep white matter changes which are nonspecific and present previousl y likely reflect microvascular ischemic change.
== END | disposition home or self-care (01) ==
LOC: RADMRIMAIN 10:53
PROVIDERS: ATTEND Radiology Radiation Oncology
DX: C79.31 Secondary malignant neoplasm of brain (principal); C77.3 Secondary and unspecified malignant neoplasm of axilla and upper limb lymph nodes; C34.32 Malignant neoplasm of lower lobe, left bronchus or lung; Z92.21 Personal history of antineoplastic chemotherapy
CPT/HCPCS: 70553; A9585

== ENCOUNTER → 2019-07-03 | Outpatient (CLI) | payer OTHER ==
[2019-07-03 07:42] LABS: African American GFR (CKD) >90 (>60 ml/min/1.73 sqM); Blood Urea Nitrogen 21 mg/dL (9-20)
--- NOTE | 2019-07-03 10:24 | CT ---
EXAMINATION TYPE: CT ChestAbdPelvis w con DATE OF EXAM: 07/03/2019 COMPARISON: Prior chest CT dated February 21, 2019 and older CTs. Prior PET/CT July 07, 2018. HISTORY: Lung CA follow up CT DLP: 2052.1 mGycm. Automated Exposure Control for Dose Reduction was Utilized. CONTRAST: CT scan of the thorax, abdomen and pelvis is performed with IV Contrast, patient injected with 100 mL of Isovue 300. FINDINGS: LUNGS: Persistent posterior left lower lobe mass measuring 3.0 x 2.7 cm axial image 43 of diminish in size from PET/CT on February 21 and November 22, 2018 study. Fairly stable from most recent February 21, 2019 study. Background mild to moderate underlying emphysematous change most prominent in the upper lobes. No new nodules or masses. No pleural effusion or pneumothorax. MEDIASTINUM: There are no new or persistent greater than 1 cm mediastinal lymph nodes. Largest lymph node identified subcentimeter-sized prevascular space anteriorly on image 15 is unchanged from most r ecent study February 21, 2019. Stable prominent but subcentimeter lymph nodes in the AP window and pericar inal region axial image 24. Stable prominent just over 1 cm right hilar lymph node image [address] No cardiomegaly or pericardial effusion is seen. OTHER: Redemonstration of prominent but subcentimeter bilateral axillary lymph nodes presumed benign. LIVER/GB: Liver is diffusely low-density consistent with fatty infiltration. PANCREAS: No significant abnormality is seen. SPLEEN: No significant abnormality is seen. ADRENALS: No significant abnormality is seen. KIDNEYS: A few simple-appearing thin-walled cysts in the left kidney are present, larger measures 2.9 cm long axis axial image 41 series 5. Symmetrical intramedullary uptake and excretion without hydron ephrosis. Mild bladder wall thickening up to 5 mm. Correlate clinically to exclude acute cystitis. Fi nding could be products of active treatment change or chemotherapy. BOWEL: Oral contrast reaches level of the cecum. No suspicious small or large bowel dilatation. GENITAL ORGANS: No gross abnormality seen. LYMPH NODES: No greater than 1cm abdominal or pelvic lymph nodes are appreciated. OSSEOUS STRUCTURES: Vacuum disc with moderate disc space narrowing L5-S1 level. OTHER: Moderate mixed plaque in the aorta extending into branch vessels. IMPRESSION: Compared to most recent CTA chest February 21, 2019. No significant interval change. Stable le ft lower lobe 3.0 cm mass. No new nodules or adenopathy. No new metastatic disease.
== END ==
LOC: RADCTMAIN 07:03
PROVIDERS: ATTEND Internal Medicine Hematology & Oncology
DX: C34.32 Malignant neoplasm of lower lobe, left bronchus or lung (principal)
CPT/HCPCS: 82565; 84520; 71260; 74177; 36415; Q9967 ×2

== ENCOUNTER → 2019-08-06 | Outpatient (CLI) | payer OTHER ==
[2019-08-06 08:27] LABS: Basophils # (A) 0.1 k/uL (0-0.2); Basophils % (A) 1 %; Eosinophils # (A) 0.4 k/uL (0-0.7); Eosinophils % (A) 4 %; HCT 46.4 % (39.0-53.0); HGB 15.9 gm/dL (13.0-17.5); Lymphocytes # (A) 2.9 k/uL (1.0-4.8); Lymphocytes % (A) 35 %; MCH 29.9 pg (25.0-35.0); MCHC 34.2 g/dL (31.0-37.0); MCV 87.5 fL (80.0-100.0); Mean Platelet Volume 6.8; Monocytes # (A) 0.4 k/uL (0-1.0); Monocytes % (A) 5 %; Neutrophils # (A) 4.3 k/uL (1.3-7.7); Neutrophils % (A) 52 %; Platelet Count 259 k/uL (150-450); RBC 5.31 m/uL (4.30-5.90); RDW 13.1 % (11.5-15.5); WBC 8.3 k/uL (3.8-10.6)
[2019-08-06 14:24] LABS: Erythrocyte Sedimentation Rate 2 mm/hr (0-15)
[2019-08-06 17:03] LABS: African American GFR (CKD) 88.4 (60.0-200.0); Albumin 4.3 g/dL (3.80-4.90); Albumin/Globulin Ratio 2.53 (1.60-3.17); Anion Gap 8.7 mmol/L (4.00-12.00); BUN/Creat Ratio 22.73 Ratio (12.00-20.00); C Reactive Protein 0.5 mg/dL (0.0-0.8); Calcium 9.4 mg/dL (8.7-10.3); Carbon Dioxide 21.3 mmol/L (21.6-31.8); Chol/HDL Ratio 6.57; Globulin 1.7 g/dL (1.6-3.3); LDL Cholesterol,Calculated 79.8 mg/dL (0.0-131.0); Potassium 4.4 mmol/L (3.5-5.5); Total Bilirubin 0.5 mg/dL (0.3-1.2); VLDL Calculation 87.2 mg/dL (5.00-40.00)
[2019-08-06 17:40] LABS: Hemoglobin A1C 9.1 % (4.0-6.0)
== END | disposition home or self-care (01) ==
LOC: LABWHC1 07:46
PROVIDERS: ATTEND Internal Medicine
DX: D64.9 Anemia, unspecified (principal); C34.90 Malignant neoplasm of unspecified part of unspecified bronchus or lung; N40.0 Benign prostatic hyperplasia without lower urinary tract symptoms; J44.9 Chronic obstructive pulmonary disease, unspecified; E11.9 Type 2 diabetes mellitus without complications; E78.5 Hyperlipidemia, unspecified; E03.9 Hypothyroidism, unspecified
CPT/HCPCS: 36415; 80053; 80061; 82306; 82550; 83036; 84153; 84439; 84443; 85025; 85652; 86140

== ENCOUNTER → 2019-10-10 | Outpatient (CLI) | payer OTHER ==
[2019-10-10 10:10] LABS: African American GFR (CKD) >90 (>60 ml/min/1.73 sqM); Blood Urea Nitrogen 23 mg/dL (9-20); Non-African American GFR(CKD) 89 (>60 ml/min/1.73 sqM)
--- NOTE | 2019-10-10 11:37 | CT ---
EXAMINATION TYPE: CT chest w con DATE OF EXAM: 10/10/2019 COMPARISON: 07/03/2019 and 02/21/2019 HISTORY: 54-year-old male follow-up all Lung cancer, observe for metastases. TECHNIQUE: Contiguous axial scanning of the chest after the administration of 100 mL of Isovue 300. Coronal/sagittal reconstructions performed. CT DLP: 537.8mGycm. Automatic exposure control utilized for a dose reduction. FINDINGS: Heart normal size without pericardial effusion. Mild coronary vessel calcifications are present. Aorta normal caliber with bovine configuration to the aortic arch and variant direct takeoff of the l eft vertebral artery directly from the aortic arch. Small amount of nondependent air within the main pulmonary outflow tract likely introduced during per ipheral line placement. Scattered nonenlarged mediastinal and bilateral axillary lymph nodes. Mildly enlarged 1.4 cm right hi lar lymph node is unchanged. There is moderate centrilobular emphysema. No consolidation or pleural effusion. Large posterior left lower lobe pulmonary nodule measures 2.9 x 2.6 cm versus 2.9 x 2.7 cm on 07/03/20 19 and 3.1 x 2.9 cm on 02/21/2019. Low-attenuation of the liver compatible with fatty infiltration. Otherwise, visualized upper abdomen shows no gross abnormal mobility. Bones: No osseous destructive process. Moderate degenerative disc disease at C5-C6. IMPRESSION: 1. Large posterior left lower lobe nodule minimally decreased in size from 02/21/2019 at 2.9 x 2.6 cm (versus 3.1 x 2.9 cm, previously). 2. Scattered nonenlarged mediastinal and axillary lymph nodes are unchanged as is a mildly enlarged 1 .4 cm right hilar lymph node, probably reactive. 3. COPD with moderate emphysema. Hepatic steatosis.
== END | disposition home or self-care (01) ==
LOC: RADCTMAIN 09:40
PROVIDERS: ATTEND Internal Medicine Hematology & Oncology
DX: Z03.89 Encounter for observation for other suspected diseases and conditions ruled out (principal); C34.32 Malignant neoplasm of lower lobe, left bronchus or lung; R59.1 Generalized enlarged lymph nodes; J43.9 Emphysema, unspecified
CPT/HCPCS: 82565; 84520; 71260; 36415; Q9967

== ENCOUNTER → 2019-10-15 | Outpatient (CLI) | payer OTHER ==
--- NOTE | 2019-10-15 11:20 | MR ---
EXAMINATION TYPE: MR brain wo/w con DATE OF EXAM: 10/15/2019 COMPARISON: 06/05/2019 HISTORY: Secondary malignant neoplasm of brain TECHNIQUE: Multiplanar, multisequence images of the brain and brainstem is performed without and with IV contras t, utilizing 11 mL intravenous Gadavist . FINDINGS: Diffusion weighted images demonstrate no evidence of a recent infarct or other diffusion ab normality. Congenital cavum variant stable from prior exam. There are scattered punctate subcortical white matter changes which are nonspecific. This could be re lated to microvascular ischemic change. Differential diagnosis could include multiple sclerosis or Ly me disease, vasculitis. These are nonenhancing suggesting neoplasm to be less likely. Optic chiasm is normal. Normal vascular flow voids are present. Midline structures demonstrate normal morphology. Partially empty sella turcica noted. The craniocer vical junction appears within normal limits. Post contrast images demonstrate no abnormal enhancemen t. The dural venous sinuses appear patent. Changes of chronic sinusitis noted. IMPRESSION: 1. No diagnostic evidence of enhancing sizable mass to suggest metastases. 2. Stable nonspecific white matter changes most typical of remote microvascular ischemia. Differentia l diagnosis includes demyelinating process, hypertension, vasculitis and Lyme's disease.
== END | disposition home or self-care (01) ==
LOC: RADMRIMAIN 10:28
PROVIDERS: ATTEND Radiology Radiation Oncology
DX: I67.82 Cerebral ischemia (principal); R90.89 Other abnormal findings on diagnostic imaging of central nervous system; C34.32 Malignant neoplasm of lower lobe, left bronchus or lung; C79.31 Secondary malignant neoplasm of brain; C77.3 Secondary and unspecified malignant neoplasm of axilla and upper limb lymph nodes; Z92.21 Personal history of antineoplastic chemotherapy
CPT/HCPCS: 70553; A9585

== ENCOUNTER → 2019-10-31 | Outpatient (CLI) | payer OTHER ==
[2019-10-31 16:26] LABS: African American GFR (CKD) 72.2 (60.0-200.0); Anion Gap 8.2 mmol/L (4.00-12.00); BUN/Creat Ratio 22.31 Ratio (12.00-20.00); Calcium 9.6 mg/dL (8.7-10.3); Carbon Dioxide 24.8 mmol/L (21.6-31.8); Non-African American GFR(CKD) 62.3 (60.0-200.0); Potassium 4.7 mmol/L (3.5-5.5)
[2019-10-31 19:08] LABS: Hemoglobin A1C 7.5 % (4.0-6.0)
== END | disposition home or self-care (01) ==
LOC: LABWHC1 08:07
PROVIDERS: ATTEND Internal Medicine
DX: E11.65 Type 2 diabetes mellitus with hyperglycemia (principal)
CPT/HCPCS: 36415; 80048; 83036

== ENCOUNTER → 2020-02-10 | Outpatient (CLI) | payer OTHER ==
--- NOTE | 2020-02-10 10:08 | XR ---
EXAMINATION TYPE: XR chest 2V DATE OF EXAM: 02/10/2020 COMPARISON: 07/09/2018 HISTORY: Shortness of breath, cough, small cell lung cancer TECHNIQUE: Frontal and lateral views of the chest are obtained. FINDINGS: The previously seen left lower lobe pulmonary mass appears as a nodule today's exam. Nodul ar density at the right costophrenic angle is also seen. Flattening of the diaphragms on the lateral view compatible with underlying COPD. Chronic interstitial prominence appears more pronounced on toda y's exam. No enlargement of the cardiomediastinal silhouette. No new focal consolidation. IMPRESSION: 1. Chronic interstitial prominence appears slightly more exaggerated on today's examination. Consider fluid overload or atypical pneumonia. 2. Smaller size of the known left lower lobe neoplasm and nodular density at the right costophrenic a ngle that may represent pulmonary nodule or atelectasis. 3. Underlying COPD.
== END | disposition home or self-care (01) ==
LOC: RADXRMAIN 09:43
PROVIDERS: ATTEND Internal Medicine Hematology & Oncology
DX: J44.9 Chronic obstructive pulmonary disease, unspecified (principal); C34.32 Malignant neoplasm of lower lobe, left bronchus or lung; J02.9 Acute pharyngitis, unspecified; K21.9 Gastro-esophageal reflux disease without esophagitis; Z71.3 Dietary counseling and surveillance
CPT/HCPCS: 71046

== ENCOUNTER → 2020-03-09 | Outpatient (CLI) | payer OTHER ==
[2020-03-09 14:19] LABS: African American GFR (CKD) >90 (>60 ml/min/1.73 sqM); Blood Urea Nitrogen 21 mg/dL (9-20); Non-African American GFR(CKD) >90 (>60 ml/min/1.73 sqM)
--- NOTE | 2020-03-09 15:22 | CT ---
EXAMINATION TYPE: CT chest w con DATE OF EXAM: 03/09/2020 COMPARISON: Chest CT October 10, 2019 and older studies. Prior PET/CT July 07, 2018 HISTORY: follow up lung cancer CT DLP: 553.9 mGycm. Automated Exposure Control for Dose Reduction was Utilized. TECHNIQUE: CT scan of the thorax is performed following with IV Contrast, patient injected with 100 mL of Isovue 300. FINDINGS: LUNGS: Moderate emphysematous change with [id number] scattered pulmonary fibrotic changes bilat erally. There is interval developing reticulation or interstitial prominence in the lower lungs sugge sting new edema and/or developing fibrotic changes. Persistent left lower lobe mass or neoplasm measu ring 2.4 x 2.3 cm axial image 45 slightly smaller in size from most recent CT and smaller in size fro m older CTs. No new nodules or masses seen. MEDIASTINUM: There is more prominent or enlarging anterior right hilar lymph node at 1.8 x 1.2 cm cur rent study versus 1.2 x 0.8 cm prior study image 30. Prominent right paratracheal lymph node at 9 x 8 mm size image 18 is slightly more suspicious versus most recent prior CTs. There are for vessel orig in from the aortic arch. Prior slightly enlarged anterior superior mediastinal lymph node adjacent to left common carotid and vertebral arteries axial image 9 is seen and significantly smaller on curren t study axial image 12. With positive treatment response. No pericardial effusion is seen. OTHER: Persistent prominent right axillary lymph nodes. Improved left axillary lymph nodes. New suspi cious spiculated rim-enhancing 1.6 cm right mass with central hypodensity or necrosis axial image 27. Visualized liver is low dense consistent with fatty infiltration. IMPRESSION: Overall mixed response as continued decrease in size of the left lower lobe mass or neopl asm from 2.9 x 2.6 cm down to 2.4 x 2.3 cm current study. Decreased in size anterior superior mediast inal prominent borderline enlarged lymph node. More suspicious right hilar and peritracheal adenopath y noted however currently. In addition new suspicious right breast subareolar mass worrisome for neop lasm warrants follow-up ultrasound and probable biopsy.
== END | disposition home or self-care (01) ==
LOC: RADCTMAIN 13:47
PROVIDERS: ATTEND Internal Medicine Hematology & Oncology
DX: C34.32 Malignant neoplasm of lower lobe, left bronchus or lung (principal); N63.41 Unspecified lump in right breast, subareolar; R59.0 Localized enlarged lymph nodes
CPT/HCPCS: 82565; 84520; 71260; 36415; Q9967

== ENCOUNTER → 2020-04-02 | Outpatient (CLI) | payer OTHER ==
--- NOTE | 2020-04-02 22:36 | MR ---
EXAMINATION TYPE: MR brain wo/w con DATE OF EXAM: 04/02/2020 COMPARISON: Prior MRI brain October 15, 2019 and older MRIs back to July 11, 2018. HISTORY: C79.31 Secondary malignant neoplasm of brain, 2mm cut protocol, from ordering Follow up Study. TECHNIQUE: Multiplanar, multisequence images of the brain and brainstem is performed without and with IV contras t, utilizing 10 mL intravenous Gadavist . FINDINGS: Diffusion weighted images demonstrate no evidence of a recent infarct or other diffusion ab normality. There is no worrisome extra-axial fluid collection. Ventricular and sulcal prominence is redemonstrated. Some scattered foci of T2 hyperintensity throughout the white matter bilaterally are again seen. Septum pellucidum vergae is redemonstrated. Midline structures demonstrate normal morphology. The craniocervical junction remains within normal limits. Post contrast images demonstrate no new enhancing lesions. Prior visualized rim-enhancing metastatic focus high right frontal lobe shows no recurrent enhancing lesion on current study. Stable 4 to 5 mm T2 hyperintense focus at this level axial image 57. The dural venous sinuses appear patent. Paranasal sinuses are now grossly clear and improved from most recent prior. Globes are intact bilate rally. IMPRESSION: No new enhancing foci to suggest active metastatic neoplastic recurrence. Stable mild dif fuse cerebral atrophy and chronic small vessel ischemic changes. Improved paranasal sinus disease not ed.
== END | disposition home or self-care (01) ==
LOC: RADMRIMAIN 13:55
PROVIDERS: ATTEND Radiology Radiation Oncology
DX: G31.9 Degenerative disease of nervous system, unspecified (principal); I67.82 Cerebral ischemia; C79.31 Secondary malignant neoplasm of brain; Z92.21 Personal history of antineoplastic chemotherapy; C77.3 Secondary and unspecified malignant neoplasm of axilla and upper limb lymph nodes; C34.32 Malignant neoplasm of lower lobe, left bronchus or lung
CPT/HCPCS: 70553; A9585

== ENCOUNTER → 2020-04-28 | Outpatient (CLI) | payer OTHER ==
[2020-04-28 18:58] LABS: Hemoglobin A1C 6.7 % (4.0-6.0)
== END | disposition home or self-care (01) ==
LOC: LABWHC1 08:19
PROVIDERS: ATTEND Internal Medicine
DX: E11.65 Type 2 diabetes mellitus with hyperglycemia (principal); E03.9 Hypothyroidism, unspecified; R94.5 Abnormal results of liver function studies
CPT/HCPCS: 36415; 83036; 84439; 84443; 84450; 84460

== ENCOUNTER → 2020-06-16 | Outpatient (CLI) | payer OTHER ==
[2020-06-16 07:54] LABS: African American GFR (CKD) >90 (>60 ml/min/1.73 sqM); Blood Urea Nitrogen 26 mg/dL (9-20); Non-African American GFR(CKD) 82 (>60 ml/min/1.73 sqM)
--- NOTE | 2020-06-16 14:15 | CT ---
EXAMINATION TYPE: CT chest w con DATE OF EXAM: 06/16/2020 COMPARISON: 03/09/2020 HISTORY: Lung cancer CT DLP: 489.4 mGycm, Automated exposure control for dose reduction was used. CONTRAST: Performed injected with 100 mL of Isovue 300. TECHNIQUE: Axial images were obtained at 5 mm thick sections. Reconstructed images are reviewed on [employer] computer in the coronal plane. FINDINGS: Portion of the thyroid visualized is normal. There is a 2.5 x 2.4 cm nodule with some microspiculation on its borders within the posterior left mi d to lower lung field. Previous measurements 2.4 x 2.3 cm. Right suprahilar lymph node measures 1.4 x 1.9 cm. Previous measurement 1.2 x 1.8 cm. The ascending aorta diameter at the level of the main pulmonary artery is 3.6 cm. The main pulmonary artery diame ter at the bifurcation is 2.[address] sections are obtained through the upper abdomen. There is mild fatty infiltration to the l iver. IMPRESSIONS: 1. Lung nodule posterior left mid to lower lung field essentially stable within measurement error fro m prior study. 2. Similar appearance of the right suprahilar lymph node.
== END | disposition home or self-care (01) ==
LOC: RADCTMAIN 07:18
PROVIDERS: ATTEND Internal Medicine Hematology & Oncology
DX: C34.32 Malignant neoplasm of lower lobe, left bronchus or lung (principal)
CPT/HCPCS: 82565; 84520; 71260; 36415; Q9967

== ENCOUNTER → 2020-06-30 | Outpatient (CLI) | payer OTHER ==
[2020-06-30 14:02] LABS: Basophils # (A) 0.1 k/uL (0-0.2); Basophils % (A) 0 %; Eosinophils # (A) 0.6 k/uL (0-0.7); Eosinophils % (A) 4 %; HCT 54.9 % (39.0-53.0); HGB 18.1 gm/dL (13.0-17.5); Lymphocytes # (A) 2.6 k/uL (1.0-4.8); Lymphocytes % (A) 17 %; MCH 27.8 pg (25.0-35.0); MCV 84.2 fL (80.0-100.0); Mean Platelet Volume 8.3; Monocytes # (A) 0.8 k/uL (0-1.0); Monocytes % (A) 5 %; Neutrophils % (A) 73 %; Platelet Count 298 k/uL (150-450); RBC 6.52 m/uL (4.30-5.90); RDW 14.7 % (11.5-15.5); WBC 15.1 k/uL (3.8-10.6)
[2020-06-30 21:18] LABS: Albumin/Globulin Ratio 2.38 (1.60-3.17); Anion Gap 11.8 mmol/L (4.00-12.00); BUN/Creat Ratio 23.33 Ratio (12.00-20.00); Calcium 9.9 mg/dL (8.7-10.3); Carbon Dioxide 21.2 mmol/L (21.6-31.8); Globulin 2.1 g/dL (1.6-3.3); Non-African American GFR(CKD) 68.1 (60.0-200.0); Total Bilirubin 1.2 mg/dL (0.2-1.2); Total Protein 7.1 g/dL (6.2-8.2)
== END | disposition home or self-care (01) ==
LOC: LABWHC1 13:09
PROVIDERS: ATTEND Internal Medicine
DX: C34.90 Malignant neoplasm of unspecified part of unspecified bronchus or lung (principal); E11.65 Type 2 diabetes mellitus with hyperglycemia; E86.0 Dehydration; A09 Infectious gastroenteritis and colitis, unspecified
CPT/HCPCS: 36415; 80053; 83630; 85025; 87045; 87046; 87324; 87329

== ENCOUNTER → 2020-07-14 | Outpatient (CLI) | payer OTHER ==
--- NOTE | 2020-07-14 13:54 | MR ---
EXAMINATION TYPE: MR brain wo/w con DATE OF EXAM: 07/14/2020 COMPARISON: MRI brain April 02, 2020 and older studies. HISTORY: secondary malignant neoplasm brain TECHNIQUE: Multiplanar, multisequence images of the brain and brainstem is performed without and with IV contras t, utilizing 10 mL intravenous Gadavist . FINDINGS: Diffusion weighted images demonstrate no evidence of a recent infarct or other diffusion ab normality. Mild ventricular and sulcal prominence redemonstrated. Septum pellucidum vergae again seen . Scattered small foci of T2 hyperintensity again seen throughout the white matter bilaterally. Midline structures redemonstrate normal morphology. The craniocervical junction remains within ayan l limits. The dural venous sinuses appear patent. The visualized sinuses are clear and the globes ar e intact. Postcontrast images show no new suspicious enhancing masses. Prior high right frontal small enhancing mass with no new enhancement. Stable 4 to 5 mm T2 hyperintense focus at this level axial image 56. IMPRESSION: No new or recurring enhancing foci to suggest active metastatic neoplastic recurrence. St able mild age-related cerebral atrophy and chronic small vessel ischemic changes from most recent MRI .
== END | disposition home or self-care (01) ==
LOC: RADMRIMAIN 12:23
PROVIDERS: ATTEND Radiology Radiation Oncology
DX: G31.1 Senile degeneration of brain, not elsewhere classified (principal); I67.82 Cerebral ischemia; C79.31 Secondary malignant neoplasm of brain; C77.3 Secondary and unspecified malignant neoplasm of axilla and upper limb lymph nodes; C34.32 Malignant neoplasm of lower lobe, left bronchus or lung; Z92.21 Personal history of antineoplastic chemotherapy
CPT/HCPCS: 70553; A9585

== ENCOUNTER → 2020-09-24 | Outpatient (CLI) | payer OTHER ==
--- NOTE | 2020-09-24 11:21 | CT ---
EXAMINATION TYPE: CT chest w con DATE OF EXAM: 09/24/2020 COMPARISON: 06/16/2020 HISTORY: lung CA follow up CT DLP: 814 mGycm, Automated exposure control for dose reduction was used. CONTRAST: Performed injected with 100 mL of Isovue 300. TECHNIQUE: Axial images were obtained at 5 mm thick sections. Reconstructed images are reviewed on [employer] computer in the coronal plane. FINDINGS: Portion of the thyroid visualized is normal. Emphysematous changes are present in the upper lung cervantes. There is a spiculated mass within the posterior lateral left lower lobe measuring 2.5 x 2.5 cm. Is es sentially stable from comparison. There is a 1.5 x 1.3 cm right suprahilar lymph node present previously. This is smaller than the com parison. No additional enlarged mediastinal or hilar adenopathy is evident. The ascending aorta diame ter at the level of the main pulmonary artery is 3.5 cm. The main pulmonary artery diameter at the b ifurcation is 2.[address] sections are obtained through the upper abdomen. There is moderate fatty infiltration live r. IMPRESSIONS: 1. Stable spiculated mass left lower lobe. 2. Diminished size of the enlarged right hilar lymph node.
== END | disposition home or self-care (01) ==
LOC: RADCTMAIN 08:26
PROVIDERS: ATTEND Internal Medicine Hematology & Oncology
DX: R59.0 Localized enlarged lymph nodes (principal); C34.32 Malignant neoplasm of lower lobe, left bronchus or lung
CPT/HCPCS: 82565; 84520; 71260; 36415; Q9967

== ENCOUNTER → 2020-11-10 | Outpatient (CLI) | payer OTHER ==
--- NOTE | 2020-11-10 10:13 | XR ---
EXAMINATION TYPE: XR chest 2V DATE OF EXAM: 11/10/2020 COMPARISON: Chest x-ray 02/10/2020, chest CT 06/16/2020 HISTORY: Shortness of breath, C 34.32, Z 71.3, J02.9 TECHNIQUE: Frontal and lateral views of the chest are obtained. FINDINGS: There is no focal air space opacity, pleural effusion, or pneumothorax seen. The cardiac silhouette size is within normal limits. There are prominent lung volumes with flattening of hemidiap hragms consistent with COPD.. The osseous structures are intact. IMPRESSION: No acute cardiopulmonary process. Emphysema.
== END | disposition home or self-care (01) ==
LOC: RADXRMAIN 09:38
PROVIDERS: ATTEND Internal Medicine Hematology & Oncology
DX: J43.9 Emphysema, unspecified (principal); K21.9 Gastro-esophageal reflux disease without esophagitis; J02.9 Acute pharyngitis, unspecified; C34.32 Malignant neoplasm of lower lobe, left bronchus or lung; Z71.3 Dietary counseling and surveillance
CPT/HCPCS: 71046

== ENCOUNTER → 2020-12-22 | Outpatient (CLI) | payer OTHER ==
[2020-12-22 16:25] LABS: T4, Free (Free Thyroxine) 1.3 ng/dL (0.80-1.80)
[2020-12-22 18:09] LABS: Eosinophils # (A) 0.45 X 10*3/uL (0.04-0.35); Eosinophils % (A) 4.4 %; HCT 50.4 % (39.6-50.0); HGB 16.2 g/dL (13.0-17.0); Lymphocytes # (A) 2.62 X 10*3/uL (0.90-5.00); Lymphocytes % (A) 25.7 %; MCH 28.1 pg (27.0-32.0); MCHC 32.1 g/dL (32.0-37.0); MCV 87.5 fL (80.0-97.0); Mean Platelet Volume 11.9 fL (9.5-12.2); Monocytes # (A) 0.74 X 10*3/uL (0.20-1.00); Monocytes % (A) 7.2 %; Neutrophils # (A) 6.21 X 10*3/uL (1.80-7.70); Neutrophils % (A) 60.8 %; Platelet Count 275 X 10*3/uL (140-440); RBC 5.76 X 10*6/uL (4.40-5.60); RDW 14.3 % (11.5-14.5); WBC 10.21 X 10*3/uL (4.50-10.00)
[2020-12-22 19:58] LABS: Erythrocyte Sedimentation Rate 2 mm/Hr (0-20)
[2020-12-22 20:41] LABS: Hemoglobin A1C 7.1 % (4.0-6.0)
[2020-12-22 21:08] LABS: African American GFR (CKD) 87.7 (60.0-200.0); Albumin 4.7 g/dL (3.80-4.90); Albumin/Globulin Ratio 2.35 (1.60-3.17); Anion Gap 7.7 mmol/L (4.00-12.00); BUN/Creat Ratio 22.73 Ratio (12.00-20.00); C Reactive Protein 0.6 mg/dL (0.0-0.8); Carbon Dioxide 23.3 mmol/L (21.6-31.8); Chol/HDL Ratio 5.65; LDL Cholesterol,Calculated 88.2 mg/dL (0.0-131.0); Magnesium 1.7 mg/dL (1.5-2.4); Non-African American GFR(CKD) 75.7 (60.0-200.0); Phosphorus 2.7 mg/dL (2.4-5.1); Potassium 4.5 mmol/L (3.5-5.5); Prostate Specific Antigen 0.4 ng/mL (0.0-3.5); Total Bilirubin 0.6 mg/dL (0.3-1.2); Total Protein 6.7 g/dL (6.2-8.2); VLDL Calculation 55.8 mg/dL (5.00-40.00)
[2020-12-23 00:43] LABS: Urine Creatinine 135.9 mg/dL
== END | disposition home or self-care (01) ==
LOC: LABWHC1 07:47
PROVIDERS: ATTEND Internal Medicine
DX: E11.65 Type 2 diabetes mellitus with hyperglycemia (principal); E55.9 Vitamin D deficiency, unspecified; E03.9 Hypothyroidism, unspecified; J44.9 Chronic obstructive pulmonary disease, unspecified; E78.5 Hyperlipidemia, unspecified; M81.0 Age-related osteoporosis without current pathological fracture; N40.0 Benign prostatic hyperplasia without lower urinary tract symptoms; D64.9 Anemia, unspecified
CPT/HCPCS: 36415; 80053; 80061; 82043; 82306; 82550; 82570; 83036; 83735; 84100; 84153; 84439; 84443; 85025; 85652; 86140

== ENCOUNTER → 2021-01-04 | Outpatient (CLI) | payer OTHER ==
[2021-01-04 09:00] LABS: African American GFR (CKD) >90 (>60 ml/min/1.73 sqM); Blood Urea Nitrogen 23 mg/dL (9-20); Non-African American GFR(CKD) 83 (>60 ml/min/1.73 sqM)
--- NOTE | 2021-01-04 09:41 | CT ---
EXAMINATION TYPE: CT chest w con DATE OF EXAM: 01/04/2021 COMPARISON: 09/24/2020 HISTORY: lung CA CT DLP: 529 mGycm Automated exposure control for dose reduction was used. CONTRAST: CT scan of the chest is performed with IV Contrast, patient injected with 100 mL of Isovue 300. FINDINGS: LUNGS: Spiculated mass left lower lobe persists however is smaller in size and currently measures 2.2 x 1.9 cm versus 2.5 x 2.5 cm previously. Mild pleural extension persists. No additional pulmonary no dules or masses seen. No pleural effusion. Mild emphysematous changes seen. MEDIASTINUM: There are no greater than 1 cm hilar or mediastinal lymph nodes. No pericardial effusi on is seen. Thoracic aorta is of normal caliber. The heart is not enlarged. UPPER ABDOMEN: There is evidence of hepatic steatosis. OTHER: No additional significant abnormality is seen. IMPRESSION: Persistent spiculated left lower lobe mass which is smaller in size as noted above.
== END | disposition home or self-care (01) ==
LOC: RADCTMAIN 08:12
PROVIDERS: ATTEND Internal Medicine Hematology & Oncology
DX: R91.8 Other nonspecific abnormal finding of lung field (principal)
CPT/HCPCS: 82565; 84520; 71260; 36415; Q9967

== ENCOUNTER → 2021-01-13 | Outpatient (CLI) | payer MEDICARE, OTHER ==
--- NOTE | 2021-01-14 05:14 | MR ---
EXAMINATION TYPE: MR brain wo/w con DATE OF EXAM: 01/13/2021 COMPARISON: 07/14/2020 HISTORY: secondary malignant neoplasm brain Follow up CONTRAST: Standard multiplanar, multisequence MRI departmental protocol utilizing 10 mL intravenous Gadavist ga dolinium contrast. Diffusion images show no evidence of acute infarct. The ventricles have normal size. There is no mass effect nor midline shift. There is no evidence of intracranial hemorrhage. Corpus callosum is intact . Sella turcica is intact. The brainstem is intact. On the T2 and FLAIR images there are scattered small white matter high signal foci at the matthew-white matter junction of both cerebral hemispheres. Total number is approximately 15 and these measure up t o 4 mm. I see no meningeal pathologic enhancement. IMPRESSION: Mild atrophy. Mild white matter changes consistent with some chronic microvascular ischemia which is stable compared to old exam. No evidence of metastatic disease. No change compared to old exam.
== END | disposition home or self-care (01) ==
LOC: RADMRIMAIN 10:33
PROVIDERS: ATTEND Radiology Radiation Oncology
DX: G31.9 Degenerative disease of nervous system, unspecified (principal); Z85.841 Personal history of malignant neoplasm of brain
CPT/HCPCS: 70553; A9585

== ENCOUNTER → 2021-01-18 | Outpatient (CLI) | payer MEDICARE, OTHER ==
--- NOTE | 2021-01-18 15:53 | XR ---
EXAMINATION TYPE: XR knee complete LT DATE OF EXAM: 01/18/2021 COMPARISON: NONE HISTORY: Pain TECHNIQUE: Three views are submitted. FINDINGS: Joint spaces are preserved. Osseous structures are intact. No acute fracture seen. Soft tissue gage cification noted. Small amount of fluid in the suprapatellar bursa. IMPRESSION: 1. No acute fracture or dislocation. 2. Small amount of fluid in the suprapatellar bursa. If there is concern for internal derangement of the knee consider MRI.
== END | disposition home or self-care (01) ==
LOC: RADXRMAIN 15:14
PROVIDERS: ATTEND Internal Medicine
DX: M25.562 Pain in left knee (principal)

== ENCOUNTER → 2021-04-01 | Outpatient (CLI) | payer MEDICARE, OTHER ==
[2021-04-01 09:14] LABS: African American GFR (CKD) >90 (>60 ml/min/1.73 sqM); Blood Urea Nitrogen 26 mg/dL (9-20); Non-African American GFR(CKD) >90 (>60 ml/min/1.73 sqM)
--- NOTE | 2021-04-01 10:55 | CT ---
EXAMINATION TYPE: CT chest w con DATE OF EXAM: 04/01/2021 COMPARISON: 01/04/2021, 09/24/2020 HISTORY: 56-year-old male C34.32, Z03.89. Lung CA, obsv. for mets TECHNIQUE: Contiguous axial scanning of the chest after the administration of 100 mL of Isovue 300. Coronal/sagittal reconstructions performed. CT DLP: 664mGycm. Automatic exposure control utilized for a dose reduction. FINDINGS: Heart normal size without pericardial effusion. Aorta normal caliber with bovine configuration to the aortic arch and additional direct takeoff of th e left vertebral artery directly from the aortic arch. Numerous but nonenlarged bilateral axillary lymph nodes are unchanged. Prominent 1 cm right hilar lymph node is unchanged. No thoracic lymphadenopathy otherwise seen by CT size criteria. Moderate upper lung emphysema. A 2.1 cm x 1.7 cm slightly spiculated nodule at the posterior left lower lobe is stable to slightly s maller versus 2.2 x 2.0 cm on 01/04/2021 and 2.4 x 2.0 cm on 09/24/2020. No new nodules or masses. No consolidation or pleural effusion. Visualized upper abdomen shows hepatic steatosis. Bones: Mild degenerative disc disease upper thoracic thoracic spine. No osseous destructive process. Normal variant sternal foramen. IMPRESSION: 1. COPD with moderate upper lung emphysema. 2. Suspicious nodule posterior left lower lobe is stable to slightly smaller at 2.1 x 1.7 cm (versus 2.2 x 2.0 cm and 2.4 x 2.0 cm on the patient's 2 prior exams, respectively).
== END | disposition home or self-care (01) ==
LOC: RADCTMAIN 08:27
PROVIDERS: ATTEND Internal Medicine Hematology & Oncology
DX: C34.32 Malignant neoplasm of lower lobe, left bronchus or lung (principal); J43.9 Emphysema, unspecified
CPT/HCPCS: 82565; 84520; 71260; 36415; Q9967

== ENCOUNTER → 2021-04-21 | Outpatient (CLI) | payer MEDICARE, OTHER ==
[2021-04-21 17:43] LABS: Hemoglobin A1C 7.1 % (4.0-6.0)
== END | disposition home or self-care (01) ==
LOC: LABWHC1 08:16
PROVIDERS: ATTEND Internal Medicine
DX: E11.65 Type 2 diabetes mellitus with hyperglycemia (principal)
CPT/HCPCS: 36415; 82947; 83036

== ENCOUNTER → 2021-06-17 | Outpatient (CLI) | payer MEDICARE, OTHER ==
[2021-06-17 11:54] LABS: African American GFR (CKD) >90 (>60 ml/min/1.73 sqM); Blood Urea Nitrogen 24 mg/dL (9-20); Non-African American GFR(CKD) >90 (>60 ml/min/1.73 sqM)
--- NOTE | 2021-06-17 14:13 | CT ---
EXAMINATION TYPE: CT chest w con DATE OF EXAM: 06/17/2021 COMPARISON: Prior CT April 01, 2021 and older CTs HISTORY: Lung cancer originally diagnosed 2018 CT DLP: 652.4 mGycm. Automated Exposure Control for Dose Reduction was Utilized. TECHNIQUE: CT scan of the thorax is performed following with IV Contrast, patient injected with 100 mL of Isovue 300. FINDINGS: LUNGS: Moderate underlying emphysematous change is redemonstrated. Persistent left lower lobe spicula paulette nodule or neoplasm measuring 2.1 x 2.0 cm axial image 43, study not significantly changed in size from most recent CT. No new nodules or masses seen. MEDIASTINUM: There is stable slightly enlarged anterior right hilar lymph node measuring 1.4 x 1.0 cm current study image 31. No new or enlarging greater than 1.0 cm adenopathy There is four vessel orig in from the aortic arch redemonstrated. No cardiomegaly. No pericardial effusion is seen. OTHER: Persistent slight asymmetrically prominent right axillary lymph nodes. No new axillary adenopa thy. Visualized liver remains low dense consistent with fatty infiltration. Mild to moderate left roverto al pelvic prominence with mild to minimal left-sided calyceal dilatation is only partially imaged. IMPRESSION: Stable 2.1 cm left lower lobe spiculated nodule. No new or enlarging suspicious nodules o r lymph nodes.
== END | disposition home or self-care (01) ==
LOC: RADCTMAIN 11:18
PROVIDERS: ATTEND Internal Medicine Hematology & Oncology
DX: C34.90 Malignant neoplasm of unspecified part of unspecified bronchus or lung (principal); R91.1 Solitary pulmonary nodule
CPT/HCPCS: 82565; 84520; 71260; 36415; Q9967

== ENCOUNTER → 2021-07-15 | Outpatient (CLI) | payer MEDICARE, OTHER ==
--- NOTE | 2021-07-15 11:35 | MR ---
EXAMINATION TYPE: MR brain wo/w con DATE OF EXAM: 07/15/2021 COMPARISON: 01/13/2021 HISTORY: Follow up for cancer, no new symptoms TECHNIQUE: Multiplanar, multisequence images of the brain and brainstem is performed without and with IV contras t, utilizing 11 mL intravenous Gadavist . FINDINGS: Diffusion weighted images demonstrate no evidence of a recent infarct or other diffusion ab normality. There is generalized degenerative change. Multiple nonspecific foci of abnormal signal th e white matter are nonspecific but most typical remote white matter ischemia. Midline structures demonstrate normal morphology. The craniocervical junction appears within normal limits. Post contrast images demonstrate of vasogenic edema in the right frontal lobe superiorly to ring-enhancing lesions measuring 10 x 8 mm and 5 x 4 mm. The dural venous sinuses appear patent. Changes of chronic sinusitis noted and the globes are intact. Congenital cavum septum variant noted. IMPRESSION: 1. Findings compatible with intracranial metastases with two ring-enhancing lesions the right frontal parietal junction superiorly measuring 1 x 8 x 1.1 cm and 5 x 4 cm. Surrounding vasogenic edema with no evidence of midline shift.
== END | disposition home or self-care (01) ==
LOC: RADMRIMAIN 10:25
PROVIDERS: ATTEND Radiology Radiation Oncology
DX: C79.31 Secondary malignant neoplasm of brain (principal); C80.1 Malignant (primary) neoplasm, unspecified; G93.6 Cerebral edema
CPT/HCPCS: 70553; A9585

== ENCOUNTER → 2021-09-28 | Outpatient (CLI) | payer MEDICARE, OTHER ==
[2021-09-28 14:39] LABS: African American GFR (CKD) >90 (>60 ml/min/1.73 sqM); Blood Urea Nitrogen 24 mg/dL (9-20); Non-African American GFR(CKD) >90 (>60 ml/min/1.73 sqM)
--- NOTE | 2021-09-28 15:16 | CT ---
EXAMINATION TYPE: CT chest w con DATE OF EXAM: 09/28/2021 COMPARISON: Chest CT June 17, 2021 and older studies. HISTORY: f/u lung ca CT DLP: 503.8 mGycm. Automated Exposure Control for Dose Reduction was Utilized. TECHNIQUE: CT scan of the thorax is performed following with IV Contrast, patient injected with 100 mL of Isovue 300. FINDINGS: LUNGS: Moderate underlying emphysematous change is redemonstrated. Persistent left lower lobe nodule or neoplasm measuring 2.0 x 1.8 cm axial image 39, current study not significantly changed in size fr om most recent CT. When accounting for technical differences. Mild linear scarring posterior left low er lung redemonstrated. No new greater than 5 mm pulmonary nodules or masses seen. MEDIASTINUM: There is stable slightly enlarged anterior right hilar lymph node measuring 0.1 x 1.1 cm current study axial image 28. No new or enlarging greater than 1.0 cm adenopathy There is four vesse l origin from the aortic arch redemonstrated. No cardiomegaly. No pericardial effusion is seen. OTHER: Persistent slight asymmetrically prominent right axillary lymph nodes. No new or enlarging axi llary adenopathy. Visualized liver remains low dense consistent with fatty infiltration. Mild to mode rate left renal pelvic prominence with mild to minimal left-sided calyceal dilatation is only partial ly imaged similar to prior. IMPRESSION: Stable 2.0 cm left lower lobe nodule when accounting for technical differences. No new or enlarging suspicious nodules or lymph nodes. r
== END | disposition home or self-care (01) ==
LOC: RADCTMAIN 14:02
PROVIDERS: ATTEND Internal Medicine Hematology & Oncology
DX: C34.32 Malignant neoplasm of lower lobe, left bronchus or lung (principal)
CPT/HCPCS: 82565; 84520; 71260; 36415; Q9967

== ENCOUNTER → 2021-10-04 | Outpatient (CLI) | payer MEDICARE, OTHER ==
--- NOTE | 2021-10-05 08:58 | MR ---
EXAMINATION TYPE: MR brain wo/w con DATE OF EXAM: 10/04/2021 COMPARISON: 07/15/2021 HISTORY: Secondary Malignant Neoplasm of Brain TECHNIQUE: Multiplanar, multisequence images of the brain and brainstem is performed without and with IV contras t, utilizing 10 mL intravenous Gadavist . FINDINGS: Exam limited by motion artifact. Diffusion weighted images demonstrate no evidence of a recent infarct or other diffusion abnormality. There is a large area of vasogenic edema involving the left frontal and parietal lobe measuring 8 cm in anterior posterior dimension increased from the prior exam. There is a lobulated mass measuring 2. 5 x 1.8 x 2.2 cm and previously measuring 1.0 x 0.8 cm. Interval increase in size of the mass and vas ogenic edema. Report called to the patient clinician's office and report faxed to the patient's clini dominik. No midline displacement. Congenital septum vergae normal variant noted. There is generalized degenerative change similar to the prior exam. Additional nonspecific signal wit hin the white matter measuring less than 5 mm scattered bilaterally compatible with remote white abhi er ischemia... Midline structures demonstrate normal morphology. The craniocervical junction appears within normal limits. The visualized sinuses are clear and the globes are intact. IMPRESSION: 1. There is interval increase in size of the right frontal parietal mass now measuring 2.5 x 1.8 x 2. 2 cm increasing measuring 1.0 x 0.8 x 1.1 cm. There is also corresponding increase in the amount of v asogenic edema with no definite midline shift.
== END | disposition home or self-care (01) ==
LOC: RADMRIMAIN 07:28
PROVIDERS: ATTEND Radiology Radiation Oncology
DX: C79.31 Secondary malignant neoplasm of brain (principal)
CPT/HCPCS: 70553; A9585

== ENCOUNTER → 2021-11-26 | Outpatient (CLI) | payer MEDICARE, OTHER ==
--- NOTE | 2021-11-26 09:59 | USB ---
Reason for exam: clinical finding. History: Patient history of other cancer. Physical Findings: Nurse Summary: 1.5cm firm nodule right breast 1 o'clock retroareolar, patient states intermittent x 2 years, 4cm soft circumscribed lump right breast at axilla, questionable lipoma (nurse mj). US Breast RT Right complete breast ultrasound includes all four quadrants, the retroareolar region and axilla. Finding demonstrates a 2.0 x 0.6 x 2.3cm mixed, hypoechoic lesion at 3 o'clock probably debris filled cyst and a 4.1 x 1.8 x 5.2cm lipoma at the axilla. These results were verbally communicated with the patient and result sheet given to the patient on 11/26/21. ASSESSMENT: Probably benign, BI-RAD 3 RECOMMENDATION: Ultrasound of the right breast in 6 months.
--- NOTE | 2021-11-26 12:40 | ECHOF ---
Referral Reason:I25.10 cardiovascular disease MEASUREMENTS -------- HEIGHT: 182.9 cm WEIGHT: 108.9 kg BP: RVIDd: 2.8 cm (< 3.3) IVSd: 1.4 cm (0.6 - 1.1) LVIDd: 4.7 cm (3.9 - 5.3) LVPWd: 1.4 cm (0.6 - 1.1) IVSs: 1.7 cm LVIDs: 2.9 cm LVPWs: 1.5 cm LA Diam: 3.5 cm (2.7 - 3.8) LAESV Index (A-L): 25.22 ml/m Ao Diam: 3.4 cm (2.0 - 3.7) MV EXCURSION: 14.414 mm (> 18.000) MV EF SLOPE: 47 mm/s (70 - 150) EPSS: 0.4 cm MV E Hao: 0.38 m/s MV DecT: 307 ms MV A Hao: 0.55 m/s MV E/A Ratio: 0.70 RAP: 5.00 mmHg RVSP: 15.30 mmHg FINDINGS -------- Sinus rhythm. This was a technically adequate study. The left ventricular size is normal. There is moderate concentric left ventricular hypertrophy. O verall left ventricular systolic function is normal with, an EF between 55 - 60 %. The diastolic fi lling pattern is normal for the age of the patient 7.99. The right ventricle is normal in size. Normal LA size by volume 22+/-6 ml/m2. The right atrial size is normal. The aortic valve is trileaflet, and appears structurally normal. No aortic stenosis or regurgitation. The mitral valve is normal. Mild mitral regurgitation is present. The tricuspid valve appears structurally normal. Mild tricuspid regurgitation present. Right vent ricular systolic pressure is normal at < 35 mmHg. The right ventricular systolic pressure, as measu red by Doppler, is 15.30mmHg. Trace/mild (physiologic) pulmonic regurgitation. The aortic root size is normal. Echo free space represents a pericardial fat pad. CONCLUSIONS -------- 1. There is moderate concentric left ventricular hypertrophy. 2. Overall left ventricular systolic function is normal with, an EF between 55 - 60 %. 3. Normal LA size by volume 22+/-6 ml/m2. 4. The aortic valve is trileaflet, and appears structurally normal. No aortic stenosis or regurgitati on. 5. Mild mitral regurgitation is present. 6. Mild tricuspid regurgitation present. 7. Trace/mild (physiologic) pulmonic regurgitation. [employer] LINE OPERATOR: Christina Perez RDCS
--- NOTE | 2021-11-26 14:13 | NM ---
EXAMINATION TYPE: NM bone scan whole body DATE OF EXAM: 11/26/2021 COMPARISON: NONE HISTORY: Lower extremity pain Delayed whole-body scanning was performed following the injection of 23.4 mCi Tc 99m MDP. Images acq uired 3 hours post injection. FINDINGS: Abnormal uptake involving nearly anteriorly, ankles, knees, and shoulders likely post arthritic. Faint uptake mid and lower thoracic spine likely degenerative. Heterogeneous uptake involving the gage varium. There is a focal area of increased uptake involving the proximal left subclavian artery are IMPRESSION: 1. Focal intense area of abnormal uptake involving the proximal left tibia. Finding is nonspecific. Recommend x-ray correlation. 2. Heterogeneous uptake involving the right calvarium recommend x-ray correlation.
== END | disposition home or self-care (01) ==
LOC: RADUSWWP 08:21
PROVIDERS: ATTEND Internal Medicine
DX: R93.6 Abnormal findings on diagnostic imaging of limbs (principal); I08.8 Other rheumatic multiple valve diseases; D17.39 Benign lipomatous neoplasm of skin and subcutaneous tissue of other sites
CPT/HCPCS: 93306; 76641; 78306; A9503

== ENCOUNTER → 2021-12-01 | Outpatient (CLI) | payer MEDICARE, OTHER ==
[2021-12-01 14:12] LABS: Basophils # (A) 0.07 X 10*3/uL (0.00-0.10); Basophils % (A) 0.5 %; Eosinophils # (A) 0.02 X 10*3/uL (0.04-0.35); Eosinophils % (A) 0.2 %; HCT 44.8 % (39.6-50.0); HGB 14.4 g/dL (13.0-17.0); Immature Grans, Automated 3.2 %; Lymphocytes # (A) 1.63 X 10*3/uL (0.90-5.00); Lymphocytes % (A) 12.3 %; MCH 27.9 pg (27.0-32.0); MCHC 32.1 g/dL (32.0-37.0); MCV 86.8 fL (80.0-97.0); Mean Platelet Volume 10.8 fL (9.5-12.2); Monocytes # (A) 0.68 X 10*3/uL (0.20-1.00); Monocytes % (A) 5.1 %; NRBC Per 100 WBC 0 /100 WBCS (0.0-0.0); Neutrophils # (A) 10.44 X 10*3/uL (1.80-7.70); Neutrophils % (A) 78.7 %; Platelet Count 423 X 10*3/uL (140-440); RBC 5.16 X 10*6/uL (4.40-5.60); RDW 13.7 % (11.5-14.5); WBC 13.27 X 10*3/uL (4.50-10.00)
[2021-12-01 14:27] LABS: ALT 38 U/L (10-49); AST 17 U/L (14-35); African American GFR (CKD) 115.9 (60.0-200.0); Albumin 3.9 g/dL (3.8-4.9); Albumin/Globulin Ratio 1.48 (1.60-3.17); Alkaline Phosphatase 78 U/L (41-126); BUN/Creat Ratio 27.96 Ratio (12.00-20.00); Blood Urea Nitrogen 22.7 mg/dL (9.0-27.0); Calcium 8.7 mg/dL (8.7-10.3); Carbon Dioxide 17.6 mmol/L (20.0-27.5); Chloride 101 mmol/L (96-109); Creatine Kinase 81 U/L (35-257); Globulin 2.7 g/dL (1.6-3.3); Glucose 273 mg/dL (70-110); Phosphorus 2.3 mg/dL (2.4-5.1); Potassium 4.3 mmol/L (3.5-5.5); Sodium 135 mmol/L (135-145); Total Protein 6.6 g/dL (6.2-8.2)
[2021-12-01 14:46] LABS: Chol/HDL Ratio 3.36 Ratio; LDL Cholesterol,Calculated 74.2 mg/dL (0.0-131.0); VLDL Calculation 19.94 mg/dL (5.00-40.00)
[2021-12-01 15:33] LABS: Erythrocyte Sedimentation Rate 35 mm/Hr (0-20)
== END | disposition home or self-care (01) ==
LOC: LABWHC1 08:17
PROVIDERS: ATTEND Internal Medicine
DX: D64.9 Anemia, unspecified (principal); N40.0 Benign prostatic hyperplasia without lower urinary tract symptoms; J44.9 Chronic obstructive pulmonary disease, unspecified; I10 Essential (primary) hypertension; E78.5 Hyperlipidemia, unspecified; E11.65 Type 2 diabetes mellitus with hyperglycemia; E66.9 Obesity, unspecified; E55.9 Vitamin D deficiency, unspecified; M81.0 Age-related osteoporosis without current pathological fracture
CPT/HCPCS: 36415; 80053; 80061; 82043; 82306; 82550; 82570; 83036; 83735; 84100; 84153; 84443; 85025; 85652; 86140

== ENCOUNTER → 2021-12-03 | Outpatient (CLI) | payer MEDICARE, OTHER ==
--- NOTE | 2021-12-03 16:52 | PE ---
Nuclear medicine PET/CT HISTORY: C 34.32, left lung carcinoma, subsequent Patient received 12.2 mCi F-18 FDG intravenously and delayed scanning was performed from the skull ba se to the mid thighs. Localization and attenuation correction CT scan was performed. Correlation to CT chest 09/28/2021, CT 07/03/2019 Chest and neck: Left lower lobe lung nodule is present measuring approximately 19 mm similar to prior CT, there is no associated hypermetabolic uptake. No pleural or pericardial effusion. Emphysematous changes are present within the lungs. No endobronchial lesion. There is no mediastinal, axillary, or hilar adenopathy. Coronary artery calcification is noted. No cervical or supraclavicular adenopathy. ABDOMEN: There is no retroperitoneal adenopathy. No evident adrenal mass. No liver mass or ascites. P ossible low-attenuation within the liver consistent with hepatic steatosis. No pelvic adenopathy or f ree fluid. No suspicious uptake. Osseous structures show no stenosis patient is uptake. Degenerative disc change present at the lower lumbar spine. IMPRESSION: Stable left lower lobe lung nodule, no suspicious uptake
== END | disposition home or self-care (01) ==
LOC: RADXRMAIN 09:26
PROVIDERS: ATTEND Internal Medicine Hematology & Oncology
DX: C34.32 Malignant neoplasm of lower lobe, left bronchus or lung (principal)
CPT/HCPCS: 78815; A9552

== ENCOUNTER → 2021-12-09 | Outpatient (CLI) | payer MEDICARE, OTHER ==
--- NOTE | 2021-12-09 15:45 | MR ---
"EXAMINATION TYPE: MR brain wo/w con DATE OF EXAM: 12/09/2021 COMPARISON: MRI dated 10/04/2021 HISTORY: Secondary Malignant Neoplasm of Brain, Lung Ca TECHNIQUE: Multiplanar, multisequence images of the brain and brainstem is performed without and with IV contras t, utilizing 11 mL intravenous Gadavist . FINDINGS: The overall size of the known right medial frontal parenchymal lesion has not significantly changed m easuring 29 x 21 x 22 mm compared to 28 x 20 x 23 mm previously. However the posterior aspect of the lesion has increased in craniocaudal dimension measuring 18 mm compared to 10 mm previously. The surr ounding vasogenic edema and effacement of the adjacent cortical sulci have markedly improved in the i nterim yet still appreciated. No other definite lesion or abnormal enhancement seen intracranially. Stable scattered bilateral cerebral white matter hyperintense T2 and FLAIR foci, likely representing ischemic foci. No intracranial hemorrhage or acute infarct. No midline shift, herniation or ventricul omegaly. Cavum septum pellucidum and vergae, stable. Unremarkable basal cisterns, sella and CP angles . Patent major intracranial vessels. Unremarkable orbits. Clear visualized paranasal sinuses and mast oid air cells. Unremarkable calvarial bones. Slightly prominent nasopharyngeal soft tissue. IMPRESSION: Slightly larger posterior component of the known right medial frontal parenchymal lesion in spite of the stability of the overall size as described above. Reduction of the surrounding vasogenic edema an d mass effect as described above. No new intracranial lesion or abnormal enhancement. A Evans level critical message alert has been initiated for VIVIAN Vega via the [employer] | Critical Results System on 12/09/2021 3:42 PM. This message alert has been sent to VIVIAN Vega via the preferences provided by the clinician for the receipt of Radiology Critical Find ings. Message ID [id number]."
== END | disposition home or self-care (01) ==
LOC: RADMRIMAIN 10:28
PROVIDERS: ATTEND Radiology Radiation Oncology
DX: C79.31 Secondary malignant neoplasm of brain (principal); C34.90 Malignant neoplasm of unspecified part of unspecified bronchus or lung
CPT/HCPCS: 70553; A9585

== ENCOUNTER → 2022-02-09 | Outpatient (CLI) | payer MEDICARE, OTHER ==
--- NOTE | 2022-02-10 03:39 | MR ---
EXAMINATION TYPE: MR brain wo/w con DATE OF EXAM: 02/09/2022 COMPARISON: 12/09/2021 HISTORY: F/U for cancer CONTRAST: Standard multiplanar, multisequence MRI departmental protocol images were obtained without contrast a nd with 11 mL intravenous Gadavist gadolinium contrast. There is irregular ring enhancing mass in the right posterior frontal lobe convexity at the matthew-whit e matter junction. This measures 3.3 x 1.9 cm. There is surrounding white matter edema. There is no m idline shift. There are scattered white matter high signal foci on the FLAIR images in both cerebral hemispheres at the matthew-white matter junction that could relate to microvascular ischemia and measure up to 4 mm. T otal number is approximately 20. There is no evidence of a posterior fossa mass. Corpus callosum is intact. Brainstem is intact. No ev idence of orbital mass. Sella turcica appears normal. There is normal enhancement of the venous sinus es. IMPRESSION: Ring-enhancing mass in the right posterior frontal lobe measures 3 mm longer in the anterior posterio r dimension compared to old exam. Surrounding edema is not significantly different. No evidence of an y new metastatic lesion. Scattered white matter high signal foci on the FLAIR images could relate to microvascular ischemia. U nchanged.
== END | disposition home or self-care (01) ==
LOC: RADMRIMAIN 10:19
PROVIDERS: ATTEND Radiology Radiation Oncology
DX: C79.31 Secondary malignant neoplasm of brain (principal)
CPT/HCPCS: 70553; A9585

== ENCOUNTER → 2022-03-02 | Outpatient (CLI) | payer MEDICARE, OTHER ==
[2022-03-02 10:53] LABS: African American GFR (CKD) 105.4 (60.0-200.0); Anion Gap 10.2 mmol/L (10.00-18.00); BUN/Creat Ratio 19.81 Ratio (12.00-20.00); Blood Urea Nitrogen 18.5 mg/dL (9.0-27.0); Calcium 9.3 mg/dL (8.7-10.3); Potassium 4.2 mmol/L (3.5-5.5)
== END | disposition home or self-care (01) ==
LOC: LABWHC1 07:00
PROVIDERS: ATTEND Internal Medicine
DX: C34.90 Malignant neoplasm of unspecified part of unspecified bronchus or lung (principal); E11.65 Type 2 diabetes mellitus with hyperglycemia
CPT/HCPCS: 36415; 80048; 83036; 84450; 84460

== ENCOUNTER → 2022-03-22 | Outpatient (CLI) | payer MEDICARE, OTHER ==
[2022-03-22 09:26] LABS: African American GFR (CKD) >90 (>60 ml/min/1.73 sqM); Blood Urea Nitrogen 21 mg/dL (9-20); Non-African American GFR(CKD) 80 (>60 ml/min/1.73 sqM)
--- NOTE | 2022-03-22 13:05 | CT ---
EXAMINATION TYPE: CT chest w con DATE OF EXAM: 03/22/2022 COMPARISON: CT dated 09/28/2021 HISTORY: Follow up for lung cancer. CT DLP: 515.6 mGycm Automated exposure control for dose reduction was used. TECHNIQUE: CT scan of the chest is performed with IV Contrast, patient injected with 100ml mL of Isovue 300. FINDINGS: LUNGS: Stable left lower lobe nodule measuring 15 x 21 mm compared to 18 x 20 mm previously. Surround ing fibrotic changes and subtle groundglass opacity, stable. COPD changes with centrilobular emphysem atous changes mainly involving the upper lobes. No new suspicious or progressive lung lesion. Patent trachea and main bronchi. The pleural effusion MEDIASTINUM: Stable bilateral hilar, axillary and mediastinal lymph nodes without interval progressio n. No progressive lymphadenopathy in the chest. Coronary arterial atherosclerotic calcifications. No gross cardiomegaly. No pericardial effusion. OTHER: Suspect hepatic steatosis. No aggressive bone lesion. IMPRESSION: Stable condition as described above.
== END | disposition home or self-care (01) ==
LOC: RADCTMAIN 08:09
PROVIDERS: ATTEND Internal Medicine Hematology & Oncology
DX: C34.90 Malignant neoplasm of unspecified part of unspecified bronchus or lung (principal); J43.2 Centrilobular emphysema
CPT/HCPCS: 82565; 84520; 71260; 36415; Q9967

== ENCOUNTER → 2022-05-18 | Outpatient (CLI) | payer MEDICARE, OTHER ==
--- NOTE | 2022-05-18 22:00 | MR ---
EXAMINATION TYPE: MR brain wo/w con DATE OF EXAM: 05/18/2022 COMPARISON: 02/09/2022 HISTORY: 57-year-old male follow-up for primary lung cancer, C79.31, Z08, C34.32. F/U to primary lung cancer. TECHNIQUE: Multiplanar, multisequence images of the brain and brainstem were acquired before and aft er administration of 11 mL IV Gadavist. Diffusion weighted imaging is performed. FINDINGS: Mild age-related generalized supratentorial volume loss. No evidence for acute infarct. T2/FLAIR weighted sequences show mild to moderate scattered bright signal foci throughout the subcort ical and deep white matter region of both cerebral hemispheres likely related to chronic small vessel ischemic disease. Major intracranial flow voids are intact. There is no midline shift or extra-axial fluid collection seen. Normal variation persistent CSP. The craniocervical junction is normal. Part ially empty sella and otherwise unremarkable midline structures. No hydrocephalus. There is a focal lesion within the superior right frontal lobe measuring 3.3 cm AP by 2.4 cm cranioca udal and 2.1 cm wide (sagittal postcontrast image 31 and axial postcontrast image 130). This shows pe ripheral serpiginous enhancement and some irregular internal enhancement. Extensive surrounding T2 br ight white matter change throughout the superior right frontal lobe. This lesion previously measured 3.4 x 2.6 x 2.2 cm. No additional enhancing lesions are seen. Dural venous sinuses are patent. Moderate mucosal thickening throughout the ethmoid air cells. Globes are intact. Trace mucosal thicke aliza maxillary sinuses. IMPRESSION: 1. Redemonstrated irregular ring-enhancing lesion superior right frontal lobe. This is overall simila r to perhaps a millimeter or two smaller in each dimension (currently measuring up to 3.3 x 2.4 x 2.1 cm versus 3.4 x 2.6 x 2.2 cm, previously). 2. Extensive surrounding bright white matter change in the superior right frontal lobe is also unchan ged. 3. Moderate chronic ethmoid sinus disease.
== END | disposition home or self-care (01) ==
LOC: RADMRIMAIN 08:09
PROVIDERS: ATTEND Radiology Radiation Oncology
DX: C79.31 Secondary malignant neoplasm of brain (principal); G93.89 Other specified disorders of brain
CPT/HCPCS: 70553; A9585

== ENCOUNTER → 2022-06-22 | Outpatient (CLI) | payer MEDICARE, OTHER ==
[2022-06-22 11:22] LABS: African American GFR (CKD) >90 (>60 ml/min/1.73 sqM); Blood Urea Nitrogen 26 mg/dL (9-20); Non-African American GFR(CKD) >90 (>60 ml/min/1.73 sqM)
--- NOTE | 2022-06-22 19:10 | CT ---
EXAMINATION TYPE: CT chest w con DATE OF EXAM: 06/22/2022 COMPARISON: 03/22/2022 HISTORY: Lung cancer CT DLP: 659 mGycm, Automated exposure control for dose reduction was used. CONTRAST: Performed injected with 70 mL of Isovue 300. TECHNIQUE: Axial images were obtained at 5 mm thick sections. Reconstructed images are reviewed on ehealtht[employer]acker computer in the coronal plane. FINDINGS: Portion of the thyroid visualized is normal. Emphysematous changes are present. There is a spiculated nodular density within the posterior left lung measuring 2.1 x 1.7 cm. This is essentially stable in size from the comparison. No enlarged mediastinal or hilar adenopathy is evident. The ascending aorta diameter at the level o f the main pulmonary artery is 3.7 cm. The main pulmonary artery diameter at the bifurcation is 2.[address] sections are obtained through the upper abdomen. Abdomen is essentially unremarkable. IMPRESSIONS: 1. Stable size of a spiculated nodule posterior left lung. Findings are compatible with the patient's known lung cancer. 2. No new nodules or adenopathy suspicious for metastatic disease within the [id number].
== END | disposition home or self-care (01) ==
LOC: RADCTMAIN 10:53
PROVIDERS: ATTEND Internal Medicine Hematology & Oncology
DX: C34.32 Malignant neoplasm of lower lobe, left bronchus or lung (principal)
CPT/HCPCS: 82565; 84520; 71260; 36415; Q9967

== ENCOUNTER → 2022-07-15 | Outpatient (CLI) | payer MEDICARE, OTHER | END | disposition home or self-care (01) | LOC: LABWHC1 07:50 | PROVIDERS: ATTEND Internal Medicine | DX: E11.65 Type 2 diabetes mellitus with hyperglycemia (principal) | CPT/HCPCS: 36415; 83036 ==

== ENCOUNTER → 2022-08-08 | Outpatient (CLI) | payer MEDICARE, OTHER ==
--- NOTE | 2022-08-08 22:39 | MR ---
EXAMINATION TYPE: MR brain wo/w con DATE OF EXAM: 08/08/2022 COMPARISON: 05/18/2022 HISTORY: F/U to primary lung cancer, brain mets. CONTRAST: Performed utilizing 10 mL intravenous Gadavist gadolinium contrast. TECHNIQUE: Multiplanar, multiecho imaging on a 3.0 Elaine magnet is performed through the brain. Stud y is performed within 24 hours of arrival to the hospital. The craniovertebral junction is normal. The pituitary is normal. Diffusion-weighted imaging is performed. There is some peripheral hyperintensity surrounding the rig ht frontal lobe lesion. There is an enhancing right frontal lobe lesion present previously. This currently measures 3.0 x 2.0 x 2.2 cm. Series 701 image 125, series 702 image 33. There is some surrounding T2 hyperintensity com patible with vasogenic edema. Mild mass effect on the adjacent sulci is noted. No midline shift or si gnificant effacement of the left lateral ventricle. In the sagittal plane there is a suggestion that vasogenic edema extends to the corpus callosum. Previous lesion measurement on 05/18/2022 measures 3.3 x 2.4 x 2.1 centimeters. On inversion recovery sequences are multiple scattered punctate subcortical white matter changes pres ent bilaterally. These were present previously. Ventricles and sulci are slightly prominent for the patient age. Patent cavum septum pellucidum cavum vergae are present, normal variants. No new areas of abnormal enhancement are evident. IMPRESSIONS: 1. Slightly diminished size of the ring-enhancing lesion right frontal lobe and persistent vasogenic edema is adjacent. 2. Punctate subcortical hyperintensities on inversion recovery weighted sequences are nonspecific. Di fferential diagnosis should include but is not limited to, microvascular ischemic change. These appea r stable from comparison.
== END | disposition home or self-care (01) ==
LOC: RADMRIMAIN 15:07
PROVIDERS: ATTEND Radiology Radiation Oncology
DX: Z08 Encounter for follow-up examination after completed treatment for malignant neoplasm (principal); C79.31 Secondary malignant neoplasm of brain
CPT/HCPCS: 70553; A9585

== ENCOUNTER → 2022-10-07 | Outpatient (CLI) | payer MEDICARE, OTHER ==
[2022-10-07 19:09] LABS: Basophils # (A) 0.16 X 10*3/uL (0.00-0.10); Basophils % (A) 0.9 %; Eosinophils # (A) 0.42 X 10*3/uL (0.04-0.35); Eosinophils % (A) 2.4 %; HCT 44.2 % (39.6-50.0); HGB 14.3 g/dL (13.0-17.0); Lymphocytes # (A) 2.71 X 10*3/uL (0.90-5.00); Lymphocytes % (A) 15.7 %; MCH 28.3 pg (27.0-32.0); MCHC 32.4 g/dL (32.0-37.0); MCV 87.4 fL (80.0-97.0); Mean Platelet Volume 11.2 fL (9.5-12.2); Monocytes # (A) 1.16 X 10*3/uL (0.20-1.00); Monocytes % (A) 6.7 %; NRBC Per 100 WBC 0 /100 WBCS (0.0-0.0); Neutrophils # (A) 12.59 X 10*3/uL (1.80-7.70); Neutrophils % (A) 73.3 %; Platelet Count 340 X 10*3/uL (140-440); RBC 5.06 X 10*6/uL (4.40-5.60); RDW 13.6 % (11.5-14.5); WBC 17.21 X 10*3/uL (4.50-10.00)
== END | disposition home or self-care (01) ==
LOC: LABWHC1 10:48
PROVIDERS: ATTEND Internal Medicine
DX: J06.9 Acute upper respiratory infection, unspecified (principal); B34.9 Viral infection, unspecified
CPT/HCPCS: 36415; 85025; 87502; 87634

== ENCOUNTER → 2022-10-13 | Outpatient (CLI) | payer MEDICARE, OTHER ==
--- NOTE | 2022-10-13 14:42 | CT ---
EXAMINATION TYPE: CT chest wo con CT DLP: 525.1 mGycm, Automated exposure control for dose reduction was used. DATE OF EXAM: 10/13/2022 2:11 PM COMPARISON: CT chest 06/22/2022, 03/22/2022. CLINICAL INDICATION:Male, 57 years old with history of C34.32 MALIGNANT NEOPLASM OF LOWER LOBE, LEFT BRON; PHH, left bronch neoplasm TECHNIQUE: Multiple axial images were obtained through the chest without IV contrast. Lack of IV or o ral contrast limits evaluation of solid and hollow organ viscera. FINDINGS: LUNGS/ PLEURA: No pleural effusion, pneumothorax, focal consolidation. Mild to moderate centrilobular emphysematous changes. Stable left lower lobe spiculated pulmonary nodule measuring 1.9 x 1.8 cm, pr eviously 2.1 x 1.7 cm. No new or enlarging pulmonary nodules. AIRWAY: Patent and unremarkable.. HEART: Size within normal limits. No pericardial effusion. Mild coronary arterial calcifications. MEDIASTINUM: No gross evidence of adenopathy. VASCULATURE: No aortic aneurysm. MUSCULOSKELETAL: No acute osseous abnormalities. No aggressive osseous lesion. SOFT TISSUES/LYMPH NODES: Unremarkable. LOWER NECK: No significant findings. UPPER ABDOMEN: Diffuse low-attenuation to the liver parenchyma. IMPRESSION: 1. Stable spiculated nodule in the left lower lobe compatible with reported lung cancer. No new or en larging pulmonary nodules. 2. Hepatic steatosis.
== END | disposition home or self-care (01) ==
LOC: RADCTMAIN 13:29
PROVIDERS: ATTEND Internal Medicine Hematology & Oncology
DX: C34.32 Malignant neoplasm of lower lobe, left bronchus or lung (principal); K76.0 Fatty (change of) liver, not elsewhere classified
CPT/HCPCS: 71250

== ENCOUNTER → 2023-01-03 | Outpatient (CLI) | payer MEDICARE, OTHER ==
--- NOTE | 2023-01-03 10:23 | MR ---
EXAMINATION TYPE: MR brain wo/w con DATE OF EXAM: 01/03/2023 COMPARISON: Most recent brain MRI October 08, 2022 and older studies. HISTORY: HX LUNG CA, BRAIN CA, RECENT SEIZURE 5 DAYS AGO, STILL HAVING TX CHEMO TECHNIQUE: Multiplanar, multisequence images of the brain and brainstem is performed without and with IV contras t, utilizing 10 mL intravenous Gadavist . FINDINGS: Diffusion weighted images demonstrate no evidence of a recent infarct or other diffusion ab normality. There is background mild ventricular and sulcal redemonstrated. Cavum vergae is redemonst rated There is background of scattered small T2 hyperintense lesions throughout the white matter bila terally. Approximately 15 scattered lesions are redemonstrated. T2 coronal weighted images show hippo campal gyri appear symmetric and within normal limits. Midline structures redemonstrate empty sella morphology. The craniocervical junction remains within normal limits. Post contrast images demonstrate irregular enhancing 1.9 x 1.5 x 1.5 cm mass high right frontal lobe axial image 138 and coronal image 26 diminished in size from 2.1 x 2.5 x 1.9 cm prior study axial felicia ge 127 and coronal image 29. There is surrounding T2 hyperintensity or vasogenic edema which is fairl y stable in appearance from prior study. No new enhancing masses are seen. Mild mucosal thickening involving ethmoid sinuses bilaterally. Globes are intact bilaterally. IMPRESSION: Continued partial positive treatment response to the right frontal mass or neoplasm. No n ew enhancing lesions are seen. No other significant change from most recent MRI.
== END | disposition home or self-care (01) ==
LOC: RADMRIMAIN 09:16
PROVIDERS: ATTEND Radiology Radiation Oncology
DX: C79.31 Secondary malignant neoplasm of brain (principal); C34.32 Malignant neoplasm of lower lobe, left bronchus or lung
CPT/HCPCS: 70553; A9585

== ENCOUNTER → 2023-03-15 | Outpatient (CLI) | payer MEDICARE, OTHER ==
[2023-03-15 18:32] LABS: African American GFR (CKD) >90 (>60 ml/min/1.73 sqM); Blood Urea Nitrogen 28 mg/dL (9-20); Non-African American GFR(CKD) >90 (>60 ml/min/1.73 sqM)
--- NOTE | 2023-03-16 08:51 | CT ---
EXAMINATION TYPE: CT chest w con DATE OF EXAM: 03/15/2023 COMPARISON: 10/13/2022 HISTORY: HX OF BRAIN AND LUNG CA. CT DLP: 499.20 mGycm Automated exposure control for dose reduction was used. TECHNIQUE: CT scan of the chest is performed with IV Contrast, patient injected with 100 mL of Isovue 300. MIP Images are created on CT scanner and reviewed. 3D reconstructed images are created on an independent workstation and reviewed. FINDINGS: LUNGS: The lungs are grossly clear, there is no concerning consolidative pneumonia identified. Ther e is no pleural effusion or pneumothorax seen. The tracheobronchial tree is patent. Linear changes l eft lung base most compatible atelectasis is Mild to moderate centrilobular emphysematous changes. Persistent left lower lobe spiculated pulmonary nodule measuring 1.4 x 1.3 cm, previously 1.9 x 1.8 cm. MEDIASTINUM: There are no greater than 1 cm hilar or mediastinal lymph nodes. Stable short axis IX m m right hilar lymph node and there is a trace of pericardial effusion is seen. Mild coronary artery calcification. Aorta normal caliber with mild atherosclerotic changes OTHER: Mild reduced attenuation liver correlation for hepatomegaly (25 cm) and hepatic steatosis. Sm all hiatal hernia. Shotty axillary adenopathy with no pathologic adenopathy seen. Mild hypertrophic c hanges of the spine IMPRESSION: 1. Persistent spiculated suspicious left lower lobe nodule now measuring 1.5 x 1.4 cm previously radha uring 1.9 x 1.8 cm 2. Hepatomegaly correlate for hepatic steatosis.
== END | disposition home or self-care (01) ==
LOC: RADCTMAIN 17:48
PROVIDERS: ATTEND Internal Medicine Hematology & Oncology
DX: C34.32 Malignant neoplasm of lower lobe, left bronchus or lung (principal); R16.0 Hepatomegaly, not elsewhere classified
CPT/HCPCS: 82565; 84520; 71260; 36415; Q9967

== ENCOUNTER → 2023-03-20 | Outpatient (CLI) | payer MEDICARE, OTHER ==
--- NOTE | 2023-03-20 18:09 | MR ---
EXAMINATION TYPE: MR brain wo/w con DATE OF EXAM: 03/20/2023 COMPARISON: 01/03/2023 HISTORY: Brain cancer, Hx Lung cancer CONTRAST: Performed utilizing 10.5 mL intravenous Gadavist gadolinium contrast. TECHNIQUE: Multiplanar, multiecho imaging on a 3.0 Elaine magnet is performed through the brain. Stud y is performed within 24 hours of arrival to the hospital. The craniovertebral junction is normal. The pituitary is normal. Diffusion-weighted imaging is performed. No abnormal hyperintensity is present to suggest an acute i ntracranial infarct or acute ischemic change. There are multiple punctate subcortical and deep white matter changes scattered throughout the bilate ral hemispheres. There is a large area of vasogenic edema through the right frontal lobe. On postcontrast images there is an irregular ring enhancement within this region. This measures 1.9 cm AP by 1.7 cm transverse by 1.9 craniocaudal. Previous measurement 1.9 x 1.5 x 1.9 cm. No new areas of abnormal enhancement are evident. No significant mass effect on sulci is evident. No subfalcine herniation. Ventricles and sulci are appropriate for the patient age. Patent cavum septum pellucid and cavum verg ae are present. There is mucosal thickening through the left maxillary sinus. Some mild mucosal thickening is within the right maxillary sinus. Right septal deviation is noted. Mild mucosal thickening through the ethmo id air cells present. Frontal sinuses and sphenoid sinuses and mastoid air cells are clear. IMPRESSIONS: 1. Stable appearance of irregular ring-enhancing mass right frontal lobe with surrounding vasogenic e suze.
== END | disposition home or self-care (01) ==
LOC: RADMRIMAIN 13:32
PROVIDERS: ATTEND Radiology Radiation Oncology
DX: C79.31 Secondary malignant neoplasm of brain (principal); R60.0 Localized edema
CPT/HCPCS: 70553; A9585

== ENCOUNTER → 2023-07-17 | Outpatient (CLI) | payer MEDICARE, OTHER ==
--- NOTE | 2023-07-17 13:03 | MR ---
EXAMINATION TYPE: MR brain wo/w con DATE OF EXAM: 07/17/2023 12:37 PM CLINICAL INDICATION:Male, 58 years old with history of C79.31 SECONDARY MALIGNANT NEOPLASM OF BRAIN, Lung cancer, secondary malignant neoplasm of brain. COMPARISON: Most recent MRI brain 03/20/2023 TECHNIQUE: Multi planar, multi sequence imaging was performed through the brain including: T1, T2, In version recovery, susceptibility weighted imaging and gradient echo imaging and Diffusion weighted im aging. The patient was then given intravenous contrast and multi planar, T1 fat-saturation images wer e obtained. IV Contrast: 10 cc Gadavist FINDINGS: Ring-enhancing lesion within the right frontal lobe with enhancement which is predominantly periphera lly located. The nonenhancing central portion has decreased in size on today's exam measuring up to 1 .7 cm in AP dimension by 1.2 cm the enhancement extends more inferiorly with a similar morphology the re is an area of more nodular enhancement in the more posterior aspect measuring up to 7 x 6 mm which previously had more central nonenhancement. There is surrounding vasogenic edema. No new areas of postcontrast enhancement. Cavum septum pellucidum is unchanged. Diffusion-weighted im aging shows no evidence of restricted diffusion to suggest acute/subacute infarct. Intracranial arter ial flow voids are maintained. Midline structures show no abnormality. Scattered foci of high T2 sign al intensity are seen within the periventricular white matter. The susceptibility weighted images do not reveal any evidence for micro-hemorrhage. The bone marrow signal is within normal limits. Paranasal sinuses and mastoid air cells: Mild scattered paranasal sinus disease. Visualized orbits: Orbital contents are intact. IMPRESSION: 1. Slightly increased enhancement centrally and more posteriorly compared to prior within the intra- axial right frontal lobe mass with surrounding vasogenic edema. 2. No new areas of abnormal postcontrast enhancement. 3. Nonspecific white matter changes, likely related to small vessel ischemic disease
== END | disposition home or self-care (01) ==
LOC: RADMRIMAIN 11:23
PROVIDERS: ATTEND Radiology Radiation Oncology
DX: C79.31 Secondary malignant neoplasm of brain (principal); R90.82 White matter disease, unspecified
CPT/HCPCS: 70553; A9585

== ENCOUNTER → 2023-08-03 | Outpatient (CLI) | payer MEDICARE, OTHER ==
[2023-08-03 14:44] LABS: African American GFR (CKD) >90 (>60 ml/min/1.73 sqM); Blood Urea Nitrogen 14 mg/dL (9-20); Non-African American GFR(CKD) 84 (>60 ml/min/1.73 sqM)
--- NOTE | 2023-08-04 08:02 | CT ---
EXAMINATION TYPE: CT chest w con DATE OF EXAM: 08/03/2023 COMPARISON: 03/15/2023 HISTORY: obs for mets. hx of lung ca. CT DLP: 475.60 mGycm, Automated exposure control for dose reduction was used. CONTRAST: Performed injected with 100 mL of Isovue 300. TECHNIQUE: Axial images were obtained at 5 mm thick sections. Reconstructed images are reviewed on [employer] computer in the coronal plane. FINDINGS: There are is poorly visualized on this exam. Subglottic airway appears normal. There is a spiculated 1.4 cm mass posterior lateral left lung. This is smaller than comparison. Previ ous measurement 1.6 cm. Some streak opacity is seen in the right lower lung field present previously. Emphysematous changes are evident. No enlarged mediastinal or hilar adenopathy is evident. Some right hilar adenopathy appears stable. Some left axillary adenopathy appears to be present which is stable from comparison The ascending ao rta diameter at the level of the main pulmonary artery is 3.4 cm. The main pulmonary artery diameter at the bifurcation is 2.[address] sections are obtained through the upper abdomen. Abdomen is essentially unremarkable. IMPRESSION: 1. Slightly diminished nodule size posterior left lung.
== END | disposition home or self-care (01) ==
LOC: RADCTMAIN 14:13
PROVIDERS: ATTEND Internal Medicine Hematology & Oncology
DX: C34.32 Malignant neoplasm of lower lobe, left bronchus or lung (principal); R91.1 Solitary pulmonary nodule
CPT/HCPCS: 82565; 84520; 71260; 36415; Q9967

== ENCOUNTER → 2023-09-29 | Outpatient (CLI) | payer MEDICARE, OTHER ==
[2023-09-29 16:18] LABS: ALT 24 U/L (10-49); AST 19 U/L (14-35); Chol/HDL Ratio 3.22 Ratio; LDL Cholesterol,Calculated 72.9 mg/dL (0.0-131.0); VLDL Calculation 18.76 mg/dL (5.00-40.00)
== END | disposition home or self-care (01) ==
LOC: LABWHC1 08:30
PROVIDERS: ATTEND Internal Medicine Interventional Cardiology
DX: E78.2 Mixed hyperlipidemia (principal)
CPT/HCPCS: 36415; 80061; 84450; 84460

== ENCOUNTER → 2023-11-21 | Outpatient (CLI) | payer MEDICARE, OTHER ==
[2023-11-21 13:33] LABS: African American GFR (CKD) >90 (>60 ml/min/1.73 sqM); Blood Urea Nitrogen 24 mg/dL (9-20); Non-African American GFR(CKD) >90 (>60 ml/min/1.73 sqM)
--- NOTE | 2023-11-21 15:19 | CT ---
EXAMINATION TYPE: CT chest w con DATE OF EXAM: 11/21/2023 COMPARISON: 08/03/2023 HISTORY: hx lung ca, routine follow up observe for mets CT DLP: 503.70 mGycm, Automated exposure control for dose reduction was used. CONTRAST: Performed injected with 100 mL of Isovue 300. TECHNIQUE: Axial images were obtained at 5 mm thick sections. Reconstructed images are reviewed on [employer] computer in the coronal plane. FINDINGS: Portion of the thyroid visualized is normal. There is a spiculated 1.4 cm nodular density posterior lateral left midlung. This appears stable from comparison. Emphysematous changes are in the upper lung cervantes. Small area of increased density in the posterior left lung sulcus measures 0.5 cm appears stable from comparison. No enlarged mediastinal or hilar adenopathy is evident. Left axillary lymphadenopathy appears stabl e. The ascending aorta diameter at the level of the main pulmonary artery is 3.6 cm. The main pulmon silvia artery diameter at the bifurcation is 2.[address] sections are obtained through the upper abdomen. Abdomen is essentially unremarkable. IMPRESSION: 1. Stable appearance of spiculated nodule posterior left mid lung. 2. No new suspicious area to suggest new metastasis.
== END | disposition home or self-care (01) ==
LOC: RADCTMAIN 13:01
PROVIDERS: ATTEND Internal Medicine Hematology & Oncology
DX: R91.1 Solitary pulmonary nodule (principal); C34.32 Malignant neoplasm of lower lobe, left bronchus or lung; K21.9 Gastro-esophageal reflux disease without esophagitis; J02.9 Acute pharyngitis, unspecified; Z71.3 Dietary counseling and surveillance
CPT/HCPCS: 82565; 84520; 71260; 36415; Q9967

== ENCOUNTER → 2024-02-13 | Outpatient (CLI) | payer MEDICARE, OTHER ==
--- NOTE | 2024-02-13 16:52 | MR ---
EXAMINATION TYPE: MR brain wo/w con DATE OF EXAM: 02/13/2024 4:37 PM CLINICAL INDICATION:Male, 59 years old with history of C79.31 SECONDARY MALIGNANT NEOPLASM OF BRAIN; PHH, Lung cancer, secondary malignant neoplasm of brain. COMPARISON: 08/17/2023 TECHNIQUE: Multi planar, multi sequence imaging was performed through the brain including: T1, T2, In version recovery, susceptibility weighted imaging and gradient echo imaging and Diffusion weighted im aging. The patient was then given intravenous contrast and multi planar, T1 fat-saturation images wer e obtained. IV Contrast: 10 cc Gadavist FINDINGS: Anatomic variant cavum septum pellucidum. Post contrast enhancement within the right frontal lobe is not significantly changed from immediate prior given differences in technique. There is surrounding v asogenic edema within this region. No new areas of abnormal postcontrast enhancement. The matthew-white junctions, ventricular system, basal cisterns appear unremarkable. Diffusion-weighted imaging shows no evidence of restricted diffusion to suggest acute/subacute infarct. Intracranial arterial flow voi ds are maintained. Midline structures show no abnormality. The susceptibility weighted images do not reveal any evidence for micro-hemorrhage. The bone marrow signal is within normal limits. Paranasal sinuses and mastoid air cells: Mild mucosal thickening of the maxillary sinuses and air marla ls. Visualized orbits: Orbital contents are intact. IMPRESSION: 1. Similar right frontal lobe abnormal enhancement within the vasogenic edema. 2. No new areas of abnormal postcontrast enhancement.
== END | disposition home or self-care (01) ==
LOC: RADMRIMAIN 15:29
PROVIDERS: ATTEND Radiology Radiation Oncology
DX: G93.6 Cerebral edema (principal); Z08 Encounter for follow-up examination after completed treatment for malignant neoplasm; C77.3 Secondary and unspecified malignant neoplasm of axilla and upper limb lymph nodes; C34.32 Malignant neoplasm of lower lobe, left bronchus or lung; Z92.21 Personal history of antineoplastic chemotherapy; Z85.841 Personal history of malignant neoplasm of brain
CPT/HCPCS: 70553; A9585

== ENCOUNTER → 2024-02-29 | Outpatient (CLI) | payer MEDICARE, OTHER ==
[2024-02-29 15:07] LABS: ALT 25 U/L (10-49); AST 21 U/L (14-35); Albumin 4.6 g/dL (3.8-4.9); Albumin/Globulin Ratio 2.19 Ratio (1.60-3.17); Alkaline Phosphatase 77 U/L (41-126); BUN/Creat Ratio 22.22 Ratio (12.00-20.00); Calcium 9.9 mg/dL (8.7-10.3); Carbon Dioxide 21.1 mmol/L (21.6-31.8); Chloride 106 mmol/L (96-109); Chol/HDL Ratio 3.55 Ratio; Globulin 2.1 g/dL (1.6-3.3); Glucose 83 mg/dL (70-110); LDL Cholesterol,Calculated 61.4 mg/dL (0.0-131.0); Potassium 4.3 mmol/L (3.5-5.5); Sodium 140 mmol/L (135-145); Total Bilirubin 0.5 mg/dL (0.3-1.2); Total Protein 6.7 g/dL (6.2-8.2)
== END | disposition home or self-care (01) ==
LOC: LABWHC1 08:28
PROVIDERS: ATTEND Internal Medicine Interventional Cardiology
DX: E78.2 Mixed hyperlipidemia (principal); E11.65 Type 2 diabetes mellitus with hyperglycemia
CPT/HCPCS: 36415; 80053; 80061; 83036

== ENCOUNTER → 2024-04-16 | Outpatient (CLI) | payer MEDICARE, OTHER ==
[2024-04-16 08:33] LABS: African American GFR (CKD) >90 (>60 ml/min/1.73 sqM); Blood Urea Nitrogen 22 mg/dL (9-20); Non-African American GFR(CKD) 86 (>60 ml/min/1.73 sqM)
--- NOTE | 2024-04-16 11:51 | CT ---
EXAMINATION TYPE: CT chest w con CT DLP: 464.7 mGycm, Automated exposure control for dose reduction was used. DATE OF EXAM: 04/16/2024 9:16 AM COMPARISON: Multiple prior CTs most recent 11/21/2023, PET 12/03/2021 CLINICAL INDICATION:Male, 59 years old with history of C34.32 lung neoplasm; PHH, h/o lung CA TECHNIQUE: Multiple axial images were obtained through the chest. Sagittal and coronal reformats were created for review. Contrast used:100 mL of Isovue 300 with IV Contrast (None if empty) Oral contrast used: (None if empty) FINDINGS: LUNGS/ PLEURA: Consolidation, pneumothorax or pleural effusion. Spiculated left lower lobe pulmonary nodule measuring 15 mm stable dating back to multiple priors differences in technique. Moderate centr ilobular emphysema changes. AIRWAY: Patent and unremarkable. HEART: Size within normal limits. MEDIASTINUM: No gross evidence of adenopathy. VASCULATURE: No aortic aneurysm. MUSCULOSKELETAL: No acute osseous abnormalities SOFT TISSUES/LYMPH NODES: Unremarkable. LOWER NECK: No significant findings. UPPER ABDOMEN: No significant findings. IMPRESSION: 1. Stable appearance of left lower lobe spiculated nodule dating back to multiple priors. 2. Moderate emphysema.
== END | disposition home or self-care (01) ==
LOC: RADCTMAIN 07:58
PROVIDERS: ATTEND Internal Medicine Hematology & Oncology
DX: C34.32 Malignant neoplasm of lower lobe, left bronchus or lung (principal); K21.9 Gastro-esophageal reflux disease without esophagitis; J02.9 Acute pharyngitis, unspecified; R91.1 Solitary pulmonary nodule; J43.9 Emphysema, unspecified; Z71.3 Dietary counseling and surveillance
CPT/HCPCS: 82565; 84520; 71260; 36415; Q9967

== ENCOUNTER → 2024-07-18 | Outpatient (CLI) | payer MEDICARE ==
[2024-07-18 15:28] LABS: ALT 22 U/L (10-49); AST 19 U/L (14-35); Blood Urea Nitrogen 17.7 mg/dL (9.0-27.0); Calcium 9.1 mg/dL (8.7-10.3); Carbon Dioxide 22.2 mmol/L (21.6-31.8); Chloride 104 mmol/L (96-109); Glucose 115 mg/dL (70-110); Potassium 4.4 mmol/L (3.5-5.5); Sodium 137 mmol/L (135-145)
== END | disposition home or self-care (01) ==
LOC: LABWHC1 08:23
PROVIDERS: ATTEND Internal Medicine
CPT/HCPCS: 36415; 80048; 82306; 83036; 84450; 84460

== ENCOUNTER → 2024-08-05 | Outpatient (CLI) | payer MEDICARE, OTHER ==
--- NOTE | 2024-08-05 16:31 | MR ---
EXAMINATION TYPE: MR brain wo/w con DATE OF EXAM: 08/05/2024 COMPARISON: 02/13/2024 HISTORY: 59-year-old male C79.31, brain neoplasm follow-up TECHNIQUE: Multiplanar, multisequence images of the brain and brainstem were acquired before and aft er administration of 10 mL IV Gadavist. Diffusion weighted imaging is performed. FINDINGS: No abnormal restricted diffusion is seen. No midline shift, herniation, or extra-axial fluid collecti on. There is unchanged 6 mm nodular focus of cortical/subcortical enhancement right paramedian superior f rontal lobe. Surrounding T2 white matter signal change extending throughout the medial right frontal lobe is similar. The associated adjacent patchy enhancement extending anteriorly and superiorly withi n the area of white matter change persists but shows slight improvement from prior. T2/FLAIR weighted sequences show additional background [id number] scattered bright signal foci in the subcortical region of both cerebral hemispheres likely reflecting changes of chronic small ves genesis ischemic disease. There is mild volume loss overlying the bilateral cerebral convexities. No hydrocephalus. Anatomic va riation were persistent CSP. Major intracranial flow voids are intact. Midline structures demonstrate normal morphology. The craniocervical junction is normal. Post contrast images demonstrate no other evidence of pathologic enhancement. Dural venous sinuses ar e patent. Mild mucosal thickening ethmoid air cells. Air-fluid level right maxillary sinus. The globes are inta ct. IMPRESSION: 1. A 6 mm nodular focus of cortical enhancement right paramedian superior frontal lobe is similar. Th e adjacent patchy enhancement extending anteriorly and superiorly shows slight improvement, possibly evolving posttreatment change. The surrounding T2 bright white matter change is stable. 2. No new lesions or jocelyn disease progression. 3. Unchanged scattered mild to moderate burden of chronic small vessel ischemic disease. 4. Air-fluid level right maxillary sinus. Correlate for any symptoms of acute sinusitis. [facility], , 08/05/2024 4:29 PM
== END | disposition home or self-care (01) ==
LOC: RADMRIMAIN 11:29
PROVIDERS: ATTEND Radiology Radiation Oncology
CPT/HCPCS: 70553

== ENCOUNTER → 2024-12-13 | Outpatient (CLI) | payer MEDICARE ==
--- NOTE | 2024-12-13 08:56 | XR ---
EXAMINATION TYPE: XR chest 2V DATE OF EXAM: 12/13/2024 8:28 AM COMPARISON: Chest CT November 25, 2024 CLINICAL INDICATION: Male, 59 years old with history of R05.9 COUGH,J12.9 PNEUMONIA, TECHNIQUE: Frontal and lateral views of the chest are obtained. FINDINGS: Underlying emphysematous changes are redemonstrated. There is no focal air space opacity, pleural effusion, or pneumothorax seen. The cardiac silhouette size is within normal limits. The o sseous structures are intact. IMPRESSION: No acute pulmonary infiltrate. [facility], , 12/13/2024 8:54 AM
[2024-12-13 09:06] LABS: Influenza A Not Detected (Not Detectd); Influenza B Not Detected (Not Detectd); RSV Not Detected (Not Detectd)
[2024-12-13 15:26] LABS: Basophils # (A) 0.11 X 10*3/uL (0.00-0.10); Basophils % (A) 0.7 %; Eosinophils # (A) 0.43 X 10*3/uL (0.04-0.35); Eosinophils % (A) 2.8 %; HCT 41.4 % (39.6-50.0); HGB 12.7 g/dL (13.0-17.0); Lymphocytes # (A) 2.43 X 10*3/uL (0.90-5.00); Lymphocytes % (A) 15.8 %; MCH 23.7 pg (27.0-32.0); MCHC 30.7 g/dL (32.0-37.0); MCV 77.2 FL (80.0-97.0); Mean Platelet Volume 11.6 FL (9.5-12.2); Monocytes # (A) 1.05 X 10*3/uL (0.20-1.00); Monocytes % (A) 6.8 %; NRBC Per 100 WBC 0 X 10*3/uL (0.00-0.01); Neutrophils # (A) 11.27 X 10*3/uL (1.80-7.70); Neutrophils % (A) 73.3 %; Platelet Count 326 X 10*3/uL (140-440); RBC 5.36 X 10*6/uL (4.40-5.60); RDW 18.3 % (11.5-14.5); WBC 15.38 X 10*3/uL (4.50-10.00)
== END | disposition home or self-care (01) ==
LOC: LABWHC1 07:51
PROVIDERS: ATTEND Internal Medicine
DX: Z11.2 Encounter for screening for other bacterial diseases (principal); Z13.9 Encounter for screening, unspecified; Z11.52 Encounter for screening for COVID-19; J12.9 Viral pneumonia, unspecified; J06.9 Acute upper respiratory infection, unspecified; R05.9 Cough, unspecified
CPT/HCPCS: 36415; 71046; 85025; 87636